=== PATIENT | female | born 1955 | race African-American/Black ===

== ENCOUNTER → 2019-03-11 | Day surgery (SDC) | payer OTHER ==
--- NOTE | 2019-03-11 11:36 | RAD REPORT ---
EXAM DESCRIPTION: Ultrasound-guided vacuum assisted right breast core biopsy CLINICAL HISTORY: Breast mass N63.11 COMPARISON: No comparisons FINDINGS: Informed consent was obtained and time-out was performed. The patient's right breast was prepped and draped in the usual sterile fashion. 1% lidocaine was used for local anesthetic purposes. Utilizing aseptic technique and ultrasound guidance, a 12 gauge vacuum assisted core biopsy device wa s used to obtain 3 core specimens through the mass of interest. A post biopsy clip was then placed. All collected material was sent for cytology. Patient tolerated procedure well. IMPRESSION: Successful ultrasound guided vacuum assisted right breast mass biopsy.
== END ==
LOC: DS 09:26
PROVIDERS: ATTEND Surgery
DX: C50.911 Malignant neoplasm of unspecified site of right female breast (principal)
CPT/HCPCS: 19083; 88305

== ENCOUNTER 2019-03-31 08:19 | Day surgery (SDC) | payer OTHER ==
[2019-03-30 14:55] LABS: Absolute Lymphocytes (CBC) 1.9 K/uL (0.7-4.9); Basophils % 0.7 % (0-1.3); Hematocrit 33.6 % (36.0-45.0); Lymphocytes % 22.5 % (15.3-44.8)
--- NOTE | 2019-03-30 15:07 | RAD REPORT ---
EXAM DESCRIPTION: RAD - Chest Pa And Lat (2 Views) - 03/30/2019 2:55 pm CLINICAL HISTORY: preop, pending Port-A-Cath placement COMPARISON: September 2013 TECHNIQUE: PA and lateral views of the chest were obtained. FINDINGS: The lungs are underinflated. No peripheral mass or consolidation. Lung base markings are n ot clearly different from comparison. Heart size is normal and central vasculature is within normal limits. No pleural effusion or pneumothorax seen. No acute bony finding noted. No aortic abnormal ity. IMPRESSION: No acute cardiopulmonary process.
[2019-03-30 15:11] LABS: Potassium 4.9 mmol/L (3.5-5.1)
--- NOTE | 2019-03-30 17:42 | EKG ---
Test Date: 2019-03-30 Test Time: 14:39:01 Manager Mail: AUDIE MEASUREMENT RESULTS: Intervals: Rate: 77 DC: 176 QRSD: 92 QT: 372 QTc: [address]: P: 40 DC: 176 QRS: 27 T: 21 INTERPRETIVE STATEMENTS: Normal sinus rhythm Normal ECG No previous ECG available for comparison Electronically Signed On 03-30-19 17:41:19 CDT by Maninder Teran
[2019-03-31] MEDS ORDERED: HEPARIN 5000 UNIT/ML 1 ML VIAL ONE (08:35)
[2019-03-31] MEDS ORDERED: LIDOCAINE 1% MPF 30 ML VIAL ONE (08:35)
[2019-03-31] MEDS ORDERED: NS 0.9% VIAL 20 ML ONE (08:35)
[2019-03-31] MEDS ORDERED: NA CHLORIDE 0.9% 1,000 ML ONE (08:43)
[2019-03-31] MEDS ORDERED: CEFAZOLIN/SWI 1gm 1 GM/10 ML SYR ONE (08:43)
[2019-03-31] MEDS ORDERED: MIDAZOLAM HCL 2 MG/2 ML INJ ONE (08:51)
[2019-03-31] MEDS ORDERED: FENTANYL CITR 100 MCG/2 ML ONE (08:51)
[2019-03-31] MEDS ORDERED: LIDOCAINE 2% MPF 5 ML VIAL ONE (08:51)
[2019-03-31] MEDS ORDERED: PROPOFOL 200 MG/20 ML VIAL IV ONE ×3 (08:51→09:28)
[2019-03-31] MEDS ORDERED: SCOPOLAMINE HYDROBROMIDE PATCH TD ONE (09:00)
[2019-03-31] MEDS ORDERED: Mastisol Adhesive Liq ONE (09:55)
--- NOTE | 2019-03-31 10:09 | P.BOP ---
Preoperative diagnosis: breast cancer Postoperative diagnosis: same Primary procedure: 1. Placement of portacath Secondary procedure: 2. interpretation of fluoroscopy Estimated blood loss: <5cc Specimen: none Findings: as above Anesthesia: General Complications: None Transferred to: Recovery Room Condition: Good
--- NOTE | 2019-03-31 10:18 | RAD REPORT ---
EXAM DESCRIPTION: RAD - Fluoroscopy <1 Hour - 03/31/2019 10:05 am CLINICAL HISTORY: Venous catheter insertion. PORT A CATH PLACEMENT COMPARISON: Breast Core BX w/US Guidance dated 03/11/2019 FINDINGS: Fluoroscopy time: 0.8 minutes.
--- NOTE | 2019-03-31 10:39 | RAD REPORT ---
EXAM DESCRIPTION: RAD - Chest Single View - 03/31/2019 10:33 am CLINICAL HISTORY: port a cath insertion Chest pain. COMPARISON: Chest Pa And Lat (2 Views) dated 03/30/2019; CHEST PA AND LAT 2 VIEW dated 10/18/2013 FINDINGS: Portable technique limits examination quality. Left-sided port catheter has its tip in the SVC. No pneumothorax. The heart is normal size. IMPRESSION: No postprocedure pneumothorax.
[2019-03-31] MEDS ORDERED: HYDROMORPHONE HCL 1 MG/ML INJ ONE (10:42)
[2019-03-31 12:04] VITALS: BP 105/68; TEMP 97.5; O2SAT 93
--- NOTE | 2019-03-31 22:47 | OP ---
Date of Procedure: 03/31/2019 Surgeon: Gordon Tabares MD Preoperative Diagnosis: Breast cancer. Postoperative Diagnosis: Breast cancer. Procedures Performed: 1.Placement of Port-A-Cath. 2.Interpretation of fluoroscopy. Estimated Blood Loss: Less than 5 mL. Anesthesia: General plus local. Indications: This is the case of a 63-year-old patient, who comes to us with a breast cancer in need of neoadjuvant treatment, and then eventually surgery. She needs a Port-A-Cath, so the benefits, al ternatives, and risks of Port-A-Cath placement fully explained, which include but are not limited to infection, bleeding, damage to adjacent structures, anesthesia complication, pneumothorax, hemothorax , SC, and even . She also understands this may not relieve any symptoms. She might need more t verdugo one surgical intervention. She understood, signed a consent. She understands the importance of monthly flushing of catheter. [facility]. Then, after that, she was advised to remove that Port-A-Cath as soon as possible. She understood and she has to come back to the office to remove the Port-A-Cath. She signed a consent. Description Of Procedure: The patient was brought to the operating room, placed in supine position. Anesthesia was done without complication. Chest and neck were prepped and draped in a sterile fashi on. A time-out was called. Patient placed in Trendelenburg position. Local anesthesia was applied, followed by insertion of an 18-gauge needle in the left subclavian vein at the first attempt. Guide wire was passed through, this was done under fluoroscopy. Needle was removed. Guidewire was placed in the superior vena cava using fluoroscopy guidance. The introducer was placed through the guidewir e, catheter was placed. Then, introducer was removed. This once again under fluoroscopy. Catheter was tunneled underneath the skin to meet the new incision that we created in the left upper chest wit h a pocket on it. We cut it to proper size, connected to the Port-A-Cath using the die designer's sp ecifications. Then after that, I proceeded and secured Port-A-Cath in place with 3-0 chromic and als o a flush with heparinized solution. Excellent backflow and inflow. Patient tolerated the procedure well. The area was irrigated. Hemostasis obtained, and then the area was closed with 3-0 chromic a nd Steri-Strips on top. Sponge counts and instrument counts were correct. The patient tolerated the procedure well. Patient was sent to Recovery in stable condition. A chest x-ray was ordered stat. ERNESTO/JADE Voice ID: [id number] Report ID: [id number]
--- NOTE | 2019-03-31 22:47 | DS ---
Date of Discharge: 03/31/2019 Diagnosis: Breast cancer. Procedure Performed: Placement of a Port-A-Cath and interpretation of fluoroscopy. Disposition: Home. Activity: As tolerated. No heavy lifting. Followup: Follow up in my office in 1 week. Call for appointment at [phone]. Chest x-ray will be done in recover room. When reviewed, then we will proceed accordingly. The patient will call the Cancer Center today to notify the Port-A-Cath has been placed. ERNESTO/JADE Voice ID: [id number] Report ID: [id number]
--- OUTSIDE RECORDS SUMMARY | 2019-04-11 16:31 | XMS REPORT ---
:1955 Author Organization eClinicalWorks Care Team Providers Name Role Phone Figueroa, Na Provider Role Unavailable Allergies No Known Allergies Problems Problem Type Condition Code Onset Dates Condition Status Problem Other iron deficiency anemia D50.8 Active Problem Deep venous thrombosis I82.409 Active Problem Chronic generalized pain R52 Active Problem Controlled type 2 diabetes mellitus E11.9 Active without complication, unspecified skilled nursing insulin use status Problem Situational insomnia F51.09 Active Problem HTN (hypertension) I10 Active Problem Morbid obesity E66.01 Active Problem Allergic rhinitis J30.9 Active Problem CKD (chronic kidney disease) stage N18.3 Active 3, GFR 30-59 ml/min Problem Family history of diabetes mellitus Z83.3 Active Problem Former smoker Z87.891 Active Problem Restless leg syndrome G25.81 Active Medications No Known Medications Results No Known Results Summary Purpose eClinicalWorks Submission
--- OUTSIDE RECORDS SUMMARY | 2019-04-11 16:31 | XMS REPORT ---
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 Problem Situational insomnia F51.09 Active Problem HTN (hypertension) I10 Active Problem Morbid obesity E66.01 Active Problem Allergic rhinitis J30.9 Active Problem CKD (chronic kidney disease) stage N18.3 Active 3, GFR 30-59 ml/min Problem Family history of diabetes mellitus Z83.3 Active Problem Former smoker Z87.891 Active Problem Restless leg syndrome G25.81 Active Medications Medication Code Code Instructions Start End Status Dosage System Date Date OneTouch Verio [facility] 57139865437 - Active USE TO TEST BLOOD SUGAR 2 TIMES A DAY OneTouch Verio [facility] 65174341546 w/Device Active USE WITH TEST STRIPS TO TEST BLOOD SUGAR FreeStyle Eagle [facility] 31125326572 - [place] daily Sept Active as directed 14 Day Sensor 2018 Pantoprazole ND 74937038661 40 Orally Once Active 1 tablet Sodium a day Clotrimazole ND 17077182996 1 % Externally Active 1 application Twice a day to affected area Hyzaar [facility] 92356458477 50-12.5 MG Active 1 tablet Orally Once a day Xarelto [facility] 31193485377 20 MG Orally Active 1 tablet with Once a day food Montelukast ND 23360581165 10 Orally Once Active 1 tablet in Sodium a day the evening Hydrocortisone [facility] 41280261823 0.2 % Active APPLY 1-2 Valerate GRAMS TOPICALLY TO AFFECTED AREA 1-2 TIMES PER DAY. DO NOT APPLY TO FACE, GROIN, UNDERARMS, UNLESS DIRECTED BY PHYSICIAN. Crestor [facility] 80796621744 5 Orally Once Active 1 tablet a day Flonase [facility] 14978041382 50 MCG/ACT Active 1 spray in Nasally Once a each nostril day Protonix [facility] 47377641894 20 MG Orally Active 1 tablet Once a day Zyrtec Allergy [facility] 52836119652 10 MG Orally Active 1 tablet Once a day Crestor [facility] 33711506016 5 MG Orally Active 1 tablet Once a day Requip [facility] 97777108660 0.5 MG Orally Active 1 tablet 1 to Once a day 3 hours before bedtime Betamethasone [facility] 92784201821 0.05 % Active 1 application Dipropionate Aug Externally to affected Once a day area Tradjenta [facility] 47159889003 5 MG Orally Active 1 tablet Once a day FreeStyle Eagle [facility] 67824207785 - daily Sept Active as directed 14 Day [place] 2018 Alcohol Pads [facility] 13710946721 70 % Active CLEAN THE SKIN BY USING 1 PAD ON THE AFFECTED AREA BEFORE APPLYING ANY TOPICAL CREAM. 2-3 TIMES DAILY Pharmacist Choice [facility] 15248629657 - Active USE TO TEST Lancets BLOOD SUGAR 2 TIMES A DAY Benzonatate [facility] 08083948105 100 MG Orally Jun 04, Active 1 capsule as Three times a 2019 needed day PRN cough Calcipotriene [facility] 83463026395 0.005 % Active APPLY 1-2 GRAMS TOPICALLY TO AFFECTED AREA 2-4 TIMES PER DAY. DO NOT APPLY TO FACE. Simple [facility] 13997087798 - Active USE WITH Diagnostics LANCETS TO Lancing Dev TEST BLOOD SUGAR Pharmacist Choice [facility] 38806574028 - Active USE TO TEST Alcohol BLOOD SUGAR 2 TIMES A DAY Ultram [facility] 57080568115 50 MG Orally Active 1 tablet as every 4 hrs needed Results No Known Results Immunizations Vaccine Administration Date Afluria single dose Apr 07, 2019 Summary Purpose eClinicalWorks Submission
== END 2019-03-31 11:52 | disposition home or self-care (01) ==
LOC: OR 08:19
PROVIDERS: ATTEND Surgery
PROC: 0JH63WZ Insertion of Totally Implantable Vascular Access Device into Chest Subcutaneous Tissue and Fascia, Percutaneous Approach (ICD-10-PCS; principal; 2019-03-31 10:00)
DX: C50.911 Malignant neoplasm of unspecified site of right female breast (principal); E11.9 Type 2 diabetes mellitus without complications; I10 Essential (primary) hypertension; K21.9 Gastro-esophageal reflux disease without esophagitis; E66.01 Morbid (severe) obesity due to excess calories; Z68.43 Body mass index [BMI] 50.0-59.9, adult; Z86.718 Personal history of other venous thrombosis and embolism; Z79.01 Long term (current) use of anticoagulants; Z83.3 Family history of diabetes mellitus
CPT/HCPCS: 36561; 93005; 85025; 80048; 36415; 82947; 71045; 71046; J2704 ×3; J1644 ×2; J2250; J3010; J1170; J0690; J7030; C1788 ×2; 76000

== ENCOUNTER 2019-06-22 07:34 | Day surgery (SDC) | payer OTHER ==
--- OUTSIDE RECORDS SUMMARY | 2019-06-22 07:47 | XMS REPORT ---
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 Problem Situational insomnia F51.09 [...] Status Dosage System Date Date OneTouch Verio [facility] 98771543159 - Active USE TO TEST BLOOD SUGAR 2 TIMES A DAY OneTouch Verio [facility] 71156285246 w/Device Active USE WITH TEST STRIPS TO TEST BLOOD SUGAR FreeStyle Eagle [facility] 86968863937 - [place] daily Sept Active as directed 14 Day Sensor 2018 Pantoprazole ND 72515899545 40 Orally Once Active 1 tablet Sodium a day Clotrimazole ND 49944932899 1 % Externally Active 1 application Twice a day to affected area Hyzaar [facility] 27990822060 50-12.5 MG Active 1 tablet Orally Once a day Xarelto [facility] 51459465567 20 MG Orally Active 1 tablet with Once a day food Montelukast ND 25019059529 10 Orally Once Active 1 tablet in Sodium a day the evening Hydrocortisone ND 12049958368 0.2 % Active APPLY 1-2 Valerate GRAMS TOPICALLY TO AFFECTED AREA 1-2 TIMES PER DAY. DO NOT APPLY TO FACE, GROIN, UNDERARMS, UNLESS DIRECTED BY PHYSICIAN. Crestor [facility] 04257959892 5 Orally Once Active 1 tablet a day Flonase [facility] 91898437284 50 MCG/ACT Active 1 spray in Nasally Once a each nostril day Protonix [facility] 16180919668 20 MG Orally Active 1 tablet Once a day Zyrtec Allergy [facility] 97279333309 10 MG Orally Active 1 tablet Once a day Crestor [facility] 74348651177 5 MG Orally Active 1 tablet Once a day Requip [facility] 95221747065 0.5 MG Orally Active 1 tablet 1 to Once a day 3 hours before bedtime Betamethasone [facility] 69494144058 0.05 % Active 1 application Dipropionate Aug Externally to affected Once a day area Tradjenta [facility] 42418719616 5 MG Orally Active 1 tablet Once a day FreeStyle Eagle [facility] 37635060330 - daily Sept Active as directed 14 Day [place] 2018 Alcohol Pads [facility] 87864747125 70 % Active CLEAN THE SKIN BY USING 1 PAD ON THE AFFECTED AREA BEFORE APPLYING ANY TOPICAL CREAM. 2-3 TIMES DAILY Pharmacist Choice [facility] [id number] - Active USE TO TEST Lancets BLOOD SUGAR 2 TIMES A DAY Benzonatate [facility] 58657673012 100 MG Orally Jun 04, Active 1 capsule as Three times a 2019 needed day PRN cough Calcipotriene [facility] 92342968160 0.005 % Active APPLY 1-2 GRAMS TOPICALLY TO AFFECTED AREA 2-4 TIMES PER DAY. DO NOT APPLY TO FACE. Simple [facility] 79766280981 - Active USE WITH Diagnostics LANCETS TO Lancing Dev TEST BLOOD SUGAR Pharmacist Choice [facility] 29582779101 - Active USE TO TEST Alcohol BLOOD SUGAR 2 TIMES A DAY Ultram [facility] 69981811725 50 MG Orally Active 1 tablet as every 4 hrs needed Results No Known Results Immunizations Vaccine Administration Date Afluria single dose Apr 07, 2019 Summary Purpose eClinicalWorks Submission
--- OUTSIDE RECORDS SUMMARY | 2019-06-22 07:47 | XMS REPORT ---
[...] diabetes mellitus E11.9 Active without complication, unspecified half-way insulin use status Problem Situational insomnia F51.09 [...]
--- OUTSIDE RECORDS SUMMARY | 2019-06-22 07:47 | XMS REPORT ---
[...] diabetes mellitus E11.9 Active without complication, unspecified assisted insulin use status Problem Situational insomnia F51.09 [...]
--- OUTSIDE RECORDS SUMMARY | 2019-06-22 07:47 | XMS REPORT ---
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
--- OUTSIDE RECORDS SUMMARY | 2019-06-22 07:47 | XMS REPORT ---
:1955 Author Organization eClinicalWorks Care Team Providers Name Role Phone Figueroa, Na Provider Role Unavailable Allergies No Known Allergies Problems Problem Type Condition Code Onset Dates Condition Status Problem Other iron deficiency anemia D50.8 Active Problem Deep venous thrombosis I82.409 Active Problem Chronic generalized pain R52 Active Problem HTN (hypertension) I10 Active Problem Morbid obesity E66.01 Active Problem Allergic rhinitis J30.9 Active Problem CKD (chronic kidney disease) stage N18.3 Active 3, GFR 30-59 ml/min Problem Family history of diabetes mellitus Z83.3 Active Problem Former smoker Z87.891 Active Problem Restless leg syndrome G25.81 Active Assessment Dermatitis L30.9 Active Assessment Other iron deficiency anemia D50.8 Active Assessment Controlled type 2 diabetes mellitus E11.9 Active without complication, 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
[2019-06-22 08:34] VITALS: BMI 49.7
[2019-06-22] MEDS ORDERED: NA CHLORIDE 0.9% 500 ML ONE ×2 (08:53→10:52)
[2019-06-22 14:44] VITALS: BP 91/49; TEMP 97.6; O2SAT 99
[2019-06-22 16:33] LABS: Hematocrit 25.9 % (36.0-45.0)
== END 2019-06-22 16:30 | disposition home or self-care (01) ==
LOC: DS 07:34
PROVIDERS: ATTEND Internal Medicine Medical Oncology
DX: D64.81 Anemia due to antineoplastic chemotherapy (principal); C50.411 Malignant neoplasm of upper-outer quadrant of right female breast
CPT/HCPCS: 36415; 86900; 86850; 86901; 85018; 85014; 36430; P9016 ×2; J7040 ×2

== ENCOUNTER 2019-09-08 07:43 | Inpatient (IN) | payer OTHER ==
--- OUTSIDE RECORDS SUMMARY | 2019-09-08 07:46 | XMS REPORT ---
:1955 Author Organization eClinicalWorks Care Team Providers Name Role Phone Figueroa, Na Provider Role Unavailable Allergies No Known Allergies Problems Problem Type Condition Code Onset Dates Condition Statu s Problem Other iron deficiency anemia D50.8 Active Problem Deep venous thrombosis I82.409 Activ e Problem Chronic generalized pain R52 Act sharri Problem Controlled type 2 diabetes mellitus E11.9 Active without complication, unspecified [facility] insulin use status Problem Situational insomnia F51.09 [...]
--- OUTSIDE RECORDS SUMMARY | 2019-09-08 07:46 | XMS REPORT ---
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
--- OUTSIDE RECORDS SUMMARY | 2019-09-08 07:46 | XMS REPORT ---
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 insulin use status Problem Situational insomnia F51.09 [...] Status Dosage System Date Date OneTouch Verio [facility] 31540256717 - Active USE T O TEST BLOOD SUGAR 2 TIMES A DAY OneTouch Verio [facility] 72227389833 w/Device Active USE WITH TEST STRIPS TO TEST BLOOD SUGAR FreeStyle Eagle [facility] 08398919993 - [place] daily Sept Active a s directed 14 Day Sensor 2018 Pantoprazole [facility] 82579244074 40 Orally Once Active 1 tablet Sodium a day Clotrimazole [facility] 19968653496 1 % Externally Active 1 application Twice a day to affected area Hyzaar [facility] 83367271997 50-12.5 MG Active 1 tablet Orally Once a day Xarelto [facility] 30210395194 20 MG Orally Active 1 table t with Once a day food Montelukast ND 15811991748 10 Orally Once Active 1 tablet in Sodium a day the evening Hydrocortisone ND 49119953065 0.2 % Active APPLY 1-2 Valerate GRAMS TOPICALLY TO AFFECTED AREA 1-2 TIMES PER DAY. DO NOT APPLY TO FACE, GROIN, UNDERARMS, UNLESS DIRECTED BY PHYSICIAN. Crestor [facility] 52662874239 5 Orally Once Active 1 tabl et a day Flonase [facility] 61548679347 50 MCG/ACT Active 1 spray i n Nasally Once a each nost ril day Protonix ND 96459810612 20 MG Orally Active 1 tabl et Once a day Zyrtec Allergy ND 82917841475 10 MG Orally Active 1 tablet Once a day Crestor [facility] 88068311373 5 MG Orally Active 1 tablet Once a day Requip ND 51425517805 0.5 MG Orally Active 1 tabl et 1 to Once a day 3 hours before bedtime Betamethasone [facility] 39997421593 0.05 % Active 1 appl ication Dipropionate Aug Externally to a ffected Once a day area Tradjenta [facility] 99566264948 5 MG Orally Active 1 tabl et Once a day FreeStyle Eagle [facility] 69261310368 - daily Sept Active as directed 14 Day Moodus 2018 Alcohol Pads [facility] 50995151774 70 % Active CLEAN T HE SKIN BY USING 1 PAD ON THE AFFECTED AREA BEFORE APPLYING ANY TOPICAL CREAM. 2-3 TIMES DAILY Pharmacist Choice [facility] 18936432632 - Active US E TO TEST Lancets BLOOD SUGAR 2 TIMES A DAY Benzonatate ND 56602342480 100 MG Orally Jun 04, Active 1 capsule as Three times a 2019 needed day PRN cough Calcipotriene [facility] 31997205260 0.005 % Active APPLY 1-2 GRAMS TOPICALLY TO AFFECTED AREA 2-4 TIMES PER DAY. DO NOT APPLY TO FACE. Simple [facility] 87946487334 - Active USE WITH Diagnostics LANCETS TO Lancing Dev TEST BLOOD SUGAR Pharmacist Choice [facility] 67000622259 - Active US E TO TEST Alcohol BLOOD SUGAR 2 TIMES A DAY Ultram [facility] 90970999733 50 MG Orally Active 1 table t as every 4 hrs needed Results No Known Results Immunizations Vaccine Administration Date Afluria single dose Apr 07, 2019 Summary Purpose eClinicalWorks Submission
--- OUTSIDE RECORDS SUMMARY | 2019-09-08 07:46 | XMS REPORT ---
[...] diabetes mellitus E11.9 Active without complication, unspecified [facility] insulin use status Problem Situational insomnia F51.09 [...]
--- OUTSIDE RECORDS SUMMARY | 2019-09-08 07:47 | XMS REPORT ---
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
--- OUTSIDE RECORDS SUMMARY | 2019-09-08 07:47 | XMS REPORT ---
:1955 Author Organization eClinicalWorks Care Team Providers Name Role Phone Figueroa, Na Provider Role Unavailable Allergies No Known Allergies Problems Problem Type Condition Code Onset Dates Condition Statu s Problem CKD (chronic kidney disease) stage N18.3 Active 3, GFR 30-59 ml/min Problem Former smoker Z87.891 Active Problem Restless leg syndrome G25.81 Active Problem Chronic generalized pain R52 Act sharri Problem Deep venous thrombosis I82.409 Activ e Problem Family history of diabetes mellitus Z83.3 Active Problem Other iron deficiency anemia D50.8 Active Problem Situational insomnia F51.09 Active Problem 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
--- OUTSIDE RECORDS SUMMARY | 2019-09-08 07:47 | XMS REPORT ---
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
--- OUTSIDE RECORDS SUMMARY | 2019-09-08 07:47 | XMS REPORT ---
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 status Problem Situational insomnia F51.09 Active Problem HTN (hypertension) I10 Active Problem Morbid obesity E66.01 Active Problem Allergic rhinitis J30.9 Active Problem CKD (chronic kidney disease) stage N18.3 Active 3, GFR 30-59 ml/min Problem Family history of diabetes mellitus Z83.3 Active Problem Former smoker Z87.891 Active Problem Restless leg syndrome G25.81 Active Medications Medication Code System Code Instructions Start Date End Date Status Dosage Tradjenta [facility] 96572228318 5 MG Orally Once Active 1 tablet a day Results No Known Results Summary Purpose eClinicalWorks Submission
--- OUTSIDE RECORDS SUMMARY | 2019-09-08 07:47 | XMS REPORT | Encounter Summary ---
:1955 Author Care Team Providers Name Role Phone Renee Figueroa DO Primary Care Provider [phone] [facility] [phone] Reason for Visit Diabetes mellitus; Chronic kidney diseas e stage 3; chronic care management; Telemedicine Visit Instructions 1. Diabetes mellitus Tradjenta 5 mg tablet gabapentin 300 mg capsule neuropathic pain: care ins tructions 2. Chronic kidney disease stage 3 3. Body mass index 40+ - severel y obese body mass index: care inst ructions learning about healthy marilyn ght 4. Malignant neoplasm of female breast 5. Essential hypertension Discussion Note: None recorded. Plan of Care Reminders Provider Appointments None recorded. Lab None recorded. Referral None recorded. Procedures None recorded. Surgeries None recorded. Imaging None recorded. Medications Name Start Date Claritin 10 mg tablet Take 1 tablet every day by oral route in the morning. gabapentin 300 mg capsule Take 1 capsule 3 times a day by oral route with meals . ondansetron 4 mg disintegrating tablet Take 2 tablets every 12 hours by oral route. pantoprazole 40 mg tablet,delayed release Take 1 tablet every day by oral route in the morning. Tradjenta 5 mg tablet Take 1 tablet every day by oral route with meals. tramadol 50 mg tablet Take 1 tablet every 6 hours by oral route. Xarelto 10 mg tablet Take 1 tablet every day by oral route. zolpidem 5 mg tablet Take 1 tablet every day by oral route at bedtime. Medications Administered None recorded. Vitals Height Weight BMI Blood Pressure 5 ft 6 in 306 lbs 49.4 kg/m2 117/80 mm[Hg] Results Lab Results None recorded. Allergies Code Code System Name Reaction Severity Status Onset NKDA Problems Name Status Onset Date Source Diabetes Mellitus Active 12/14/2018 Deep Venous Thrombosis Active 12/14/2018 Gastroesophageal Reflux Disease Active 12/14/2018 Chronic Kidney Disease Stage 3 Active 12/14/2018 Chronic Back Pain Active 12/14/2018 Body Mass Index 40+ - Severely Obese Active 12/14/2018 Diabetic Polyneuropathy Active 08/27/2019 Inflammatory Disorder Active 08/27/2019 Malignant Neoplasm of Female Breast Active 09/01/2019 Essential Hypertension Active 09/01/2019 Insertion of Implantable Venous Access Port Active 06/2019 Procedures Date Name Performed by Hysterectomy (Total) Information not carrington ilable Vaccine List Vaccine Type influenza, injectable, quadrivalent 03/02/2019 Social History Tobacco Smoking Status Former Smoker Past Encounters 08/30/2019 Diabetes Mellitus; Chronic Kidney Diseas e Stage 3; Body Mass Index 40+ - Severely Obese; Malignant Neoplasm of Female Breast; Essential Hypertension Leeann Ramos, FRAMING CONSULTANT: [address] [facility] , [address], [place] [address], Ph. History of Present Illness Diabetes Reported By: Patient HPI: Duration: chronic. Control: usually well controlled. Compliance: compliant with medications. Self Care: seeing eye doctor regularly, checking feet regularly. Ass ociated Symptoms: numbness of feet Mini Cog Reported By: Patient Functional Ability: Personal/Social/ Draw a cloc k and write in the numbers in the correct place, and set the t kyaw to 10 minutes after 11 o'clock was completed correctly? Yes , 3 word recall: Your nurse or doctor will ask you to remember 3 w ords. In 5 minutes, they will ask you to repeat them. Riyamagdi t recalled 3 words Chronic Disease Management: HTN, DM, Lipid Disorder CDM Reported By: Patient HPI: Type: hypertension essential . Status: Diabetes - Controlled. Severity with CKD, with Nephropathy; Polyneuropathy exacerbated by chemo. Associated Symptoms: feet pa in, tingling, numbness of feet. Modifying Factors improved with medica tions. Compliance: COMPLIANT with theraputic plan CKD CDM Reported By: Patient HPI: Type/Etiology: HTN, diabetes . Duration or Onset: chronic. Status: controlled. Severity: stage 3. Associated Symptoms: no leg swelling, no weight gain, no changes in u rination, no chest pain at rest, no shortness of breath, no ligh t headedness Opioid Use Assessment Reported By: Patient Opioid Use Assessment:: Current Use of Opioids : Tra madol (Ultram). Has the patient tried other pain management modalities: yes; Tried massaging Note: I confirm that I received verbal consent from the patient for the virtual visit. Review of Systems Comprehensive General Adult ROS Reported By: Patient Constitutional: Constitutional: no fever, no night sweats, no significant weight gain, no significant weight loss, no exercise intolerance Eyes: Eyes: no dry eyes, no vision change, no irritation ENMT: Ears: no difficulty hearing, no ear pain. Nose: no frequent nosebleeds, no nose problems , no sinus problems. Mouth/Throat: no sore throat, no bleeding gums, no snoring, no dry mouth, no mouth ulcers, no oral abnorm alities, no teeth problems Cardiovascular: Cardiovascular: no chest catherine n, no arm pain on exertion, no shortness of breath when wal shahid, no shortness of breath when lying down, no palpitations, no known heart murmur, no lightheadedness Respiratory: Respiratory: no cough, no wh eezing, no shortness of breath, no coughing up blood, no sleep apnea Gastrointestinal: Gastrointestinal: no abdomin al pain, no nausea, no vomiting, no constipation, normal appe tite, no diarrhea, not vomiting blood, no dyspepsia, no GERD Genitourinary: Genitourinary: no incontinen ce, no difficulty urinating, no hematuria, no increased freq uency Musculoskeletal: Musculoskeletal: no muscle a ches, no muscle weakness, no arthralgias/joint pain, no b ack pain, no swelling in the extremities Integumentary: Skin: no abnormal mole, no j aundice, no rashes, no laceration Neurologic: Neurologic: no loss of consc iousness, no weakness, no seizures, no dizziness, no m igraines, no headaches, no tremor, numbness, restless legs; Num bness an tingling to both hands and feet Psychiatric: Psych: no depression, no sle ep disturbances, feeling safe in a relationship, no alcohol abu se, no anxiety, no hallucinations, no suicidal thoughts Endocrine: Endocrine: no fatigue Hematologic/Lymphatic: Hematologic/Lymphatic no swo llen glands, no bruising, no excessive bleeding Allergic/Immunologic: Allergy/Immunologic: no runn y nose, no sinus pressure, no itching, no hives, no freque nt sneezing Physical Exam None recorded.
--- OUTSIDE RECORDS SUMMARY | 2019-09-08 07:48 | XMS REPORT ---
:1955 Author Organization eClinicalWorks Care Team Providers Name Role Phone Figueroa, Na Provider Role Unavailable Allergies, Adverse Reactions, Alerts Substance Reaction Event Type N.K.D.A. 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 Problem HTN (hypertension) I10 Active Problem Morbid obesity E66.01 Active Problem Controlled type 2 diabetes E11.9 A ctive mellitus without complication, unspecified 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 insulin 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 status Problem Allergic rhinitis J30.9 Active Assessment Elevated serum globulin level R77.1 Active Assessment Other iron deficiency anemia D50.8 Active Assessment Deep venous thrombosis I82.409 Activ e Assessment CKD (chronic kidney disease) stage N18.3 Active 3, GFR 30-59 ml/min Problem Chronic generalized pain R52 Act sharri Assessment HTN (hypertension) I10 Active Problem Deep venous thrombosis I82.409 Activ e Assessment Adverse effect of antineoplastic T45.1X5A Active and immunosuppressive drugs, initial encounter Assessment Controlled type 2 diabetes E11.9 A ctive mellitus without complication, unspecified 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 insulin use status Problem Family history of diabetes Z83.3 A ctive mellitus Medications Medication Code Code Instructions Start End Status Dosage System Date Date Xarelto [facility] 63851668767 20 MG Orally Active 1 table t with Once a day food Tradjenta ND 48958188997 5 MG Orally Active 1 tabl et Once a day Zyrtec Allergy ND 01096081293 10 MG Orally Active 1 tablet Once a day OneTouch Verio [facility] 46229566675 w/Device Active USE WITH TEST STRIPS TO TEST BLOOD SUGAR Simple [facility] 90326239365 - Active USE WITH Diagnostics LANCETS TO Lancing Dev TEST BLOOD SUGAR Flonase ND 33853399476 50 MCG/ACT Active 1 spray i n Nasally Once a each nost ril day Protonix ND 02566098842 20 MG Orally Active 1 tabl et Once a day Hyzaar ND 75081910818 50-12.5 MG Active 1 tablet Orally Once a day FreeStyle [place] ND 54611581654 - daily Sept Active as directed 14 Day [place] 2018 Crestor [facility] 47431851890 5 MG Orally Active 1 tablet Once a day Benzonatate ND 74117606535 100 MG Orally Jun 04, Active 1 capsule as Three times a 2018 needed day PRN cough Tradjenta ND 73801128350 5 MG Active TAKE 1 TAB LET BY MOUTH EVERY DAY Ultram ND 29382229148 50 MG Orally Active 1 table t as every 4 hrs needed Clotrimazole ND 14540902488 1 % Externally Active 1 application Twice a day to affected area FreeStyle Eagle [facility] 16809300472 - SC daily Sept Active a s directed 14 Day Sensor 2018 Hydrocortisone ND 91916478561 0.2 % Active APPLY 1-2 Valerate GRAMS TOPICALLY TO AFFECTED AREA 1-2 TIMES PER DAY. DO NOT APPLY TO FACE, GROIN, UNDERARMS, UNLESS DIRECTED BY PHYSICIAN. Requip ND 98594349149 0.5 MG Orally Active 1 tabl et 1 to Once a day 3 hours before bedtime Calcipotriene [facility] 91513696657 0.005 % Active APPLY 1-2 GRAMS TOPICALLY TO AFFECTED AREA 2-4 TIMES PER DAY. DO NOT APPLY TO FACE. Crestor [facility] 02500771422 5 Orally Once Active 1 tabl et a day Pharmacist [facility] 92818957713 - Active USE TO TE ST Choice Alcohol BLOOD SUG AR 2 TIMES A DAY Ferrous Sulfate ND 15740840230 325 (65 Fe) MG Inact sharri 1 tablet Orally twice a day Alcohol Pads [facility] 78639568344 70 % Active CLEAN T HE SKIN BY USING 1 PAD ON THE AFFECTED AREA BEFORE APPLYING ANY TOPICAL CREAM. 2-3 TIMES DAILY Betamethasone [facility] 00704647995 0.05 % Active 1 appl ication Dipropionate Aug Externally to a ffected Once a day area Pharmacist [facility] 23021180322 - Active USE TO TE ST Choice Lancets BLOOD SUG AR 2 TIMES A DAY Montelukast [facility] 98964790021 10 Orally Once Active 1 tablet in Sodium a day the evening Pantoprazole [facility] 28794146693 40 Orally Once Active 1 tablet Sodium a day OneTouch Verio [facility] 03937666198 - twice a day Active USE TO TEST BLOOD SUGAR 2 TIMES A DAY Results Name Result Date Reference Range Unit Abnormali ty Flag Hemoglobin A1c ----Hemoglobin A1c 5.5 62904823 4.8-5.6 % Comp. Metabolic Panel (14) (CMP) ----Globulin, Total 2.6 20190727 1.5-4.5 g/dL ----eGFR If Africn Am 58 64304305 >59 mL/min/1.73 L ----Albumin 4.0 99888354 3.8-4.8 g/dL ----eGFR If NonAfricn Am 51 44957767 >59 mL/min/1.73 L ----Sodium 145 20190727 134-144 mmol/L H ----Protein, Total 6.6 20190727 6.0-8.5 g/dL ----BUN/Creatinine Ratio 21 20190727 12-28 ----Calcium 9.0 20190727 8.7-10.3 mg/dL ----AST (SGOT) 22 20190727 0-40 IU/L ----Glucose 118 20190727 65-99 mg/dL H ----Alkaline Phosphatase 105 20190727 39-117 IU/L ----Bilirubin, Total 0.4 20190727 0.0-1.2 mg/dL ----Creatinine 1.16 20190727 0.57-1.00 mg/dL H ----A/G Ratio 1.5 20190727 1.2-2.2 ----BUN 24 20190727 8-27 mg/dL ----Carbon Dioxide, 22 20190727 20-29 mmol/L Total ----ALT (SGPT) 19 20190727 0-32 IU/L ----Potassium 3.6 35969533 3.5-5.2 mmol/L ----Chloride 108 98773509 96-106 mmol/L H Lipid Panel w/ Chol/HDL Ratio ----T. Chol/HDL Ratio 8.5 20190727 0.0-4.4 ratio H ----LDL Cholesterol Calc 155 20190727 0-99 mg/dL H ----Cholesterol, Total 222 20190727 100-199 mg/dL H ----Triglycerides 206 20190727 0-149 mg/dL H ----HDL Cholesterol 26 20190727 >39 mg/dL L ----VLDL Cholesterol [place] 41 54691799 5-40 mg/dL H Microalbumin/Creat Ratio, Random Ur ----Albumin, Urine 256.7 61020424 Not Estab. ug/mL ----Alb/Creat Ratio 197 20190727 0-29 mg/g creat H ----Creatinine, Urine 130.0 [id number] Not Estab. mg/dL CBC With Differential/Platelet ----RDW 19.7 77509950 11.7-15.4 % H ----MCHC 31.0 19051264 31.5-35.7 g/dL L ----MCH 28.0 82990650 26.6-33.0 pg ----MCV 90 75163381 79-97 fL ----Hematocrit 27.4 67414190 34.0-46.6 % L ----Hemoglobin 8.5 91014665 11.1-15.9 g/dL L ----Immature 1 [id number] Not Estab. % Granulocytes ----RBC 3.04 74557667 3.77-5.28 x10E6/uL L ----WBC 5.1 33754172 3.4-10.8 x10E3/uL ----Immature Grans (Abs) 0.1 83706273 0.0-0.1 x10E3/uL ----Eos (Absolute) 0.0 02192421 0.0-0.4 x10E3/uL ----Basos 0 23530917 Not Estab. % ----Baso (Absolute) 0.0 [id number] 0.0-0.2 x10E3/uL ----Neutrophils 4.1 53442583 1.4-7.0 x10E3/uL (Absolute) ----Lymphs (Absolute) 0.5 42336753 0.7-3.1 x10E3/uL L ----Monocytes(Absolute) 0.4 20190727 0.1-0.9 x10E3/uL ----Neutrophils 81 20190727 Not Estab. % ----Lymphs 10 20190727 Not Estab. % ----Monocytes 8 20190727 Not Estab. % ----Eos 0 [id number] Not Estab. % ----Platelets 324 20190727 150-450 x10E3/uL Summary Purpose eClinicalWorks Submission
[2019-09-08] MEDS ORDERED: SCOPOLAMINE HYDROBROMIDE PATCH TD ONE (08:06)
[2019-09-08] MEDS ORDERED: NA CHLORIDE 0.9% 1,000 ML ONE (08:06)
[2019-09-08] MEDS ORDERED: CEFAZOLIN/SWI 1gm 1 GM/10 ML SYR ONE (08:06)
[2019-09-08 08:15] LABS: Absolute Lymphocytes (CBC) 0.7 K/uL (0.7-4.9); Basophils % 0.3 % (0-1.3); Hematocrit 28.4 % (36.0-45.0); Lymphocytes % 9.8 % (15.3-44.8); MPV 7.5 fL (7.6-11.3); RBC Red Blood Cell Count 3.23 M/uL (3.86-4.86)
[2019-09-08] MEDS ORDERED: ROCURONIUM 50 MG/5 ML VIAL IV ONE (08:15)
[2019-09-08] MEDS ORDERED: LIDOCAINE 1% MPF 5 ML VIAL ONE (08:15)
[2019-09-08] MEDS ORDERED: FENTANYL CITR 100 MCG/2 ML ONE (08:15)
[2019-09-08] MEDS ORDERED: propofoL 200 MG/20 ML VIAL IV ONE (08:15)
[2019-09-08] MEDS ORDERED: MIDAZOLAM HCL 2 MG/2 ML INJ ONE (08:15)
[2019-09-08] MEDS ORDERED: KETOROLAC 30 MG/ML INJ ONE ×2 (08:16→11:51)
[2019-09-08] MEDS ORDERED: dexAMETHasone 10 MG/ML VIAL ONE (08:16)
[2019-09-08] MEDS ORDERED: ONDANSETRON 4 MG/2 ML VIAL ONE ×2 (08:16→11:52)
--- NOTE | 2019-09-08 08:36 | RAD REPORT ---
EXAM DESCRIPTION: Grace Mackey (2 Views)09/08/2019 8:26 am CLINICAL HISTORY: Breast cancer preoperative exam for mastectomy COMPARISON: 2019 FINDINGS: The lungs appear clear of acute infiltrate. The heart is borderline enlarged. A central v enous catheters is tip in the superior vena cava. It is pointing laterally IMPRESSION: No acute abnormalities displayed
[2019-09-08 09:06] LABS: Anisocytosis 1+; Blood Morphology Comment NOTED (NOT SEEN); Platelet Estimate ADEQ
[2019-09-08] MEDS ORDERED: FENTANYL CITR 250 MCG/5 ML ONE (10:07)
[2019-09-08] MEDS: NA CHLORIDE 0.9% 1,000 ML ONE ×2 (11:11→11:30)
[2019-09-08] MEDS ORDERED: GLYCOPYRROLATE 0.2 MG/ML SYR ONE (11:51)
[2019-09-08] MEDS ORDERED: NEOSTIGMINE 1 MG/ML -5 ML ONE (11:52)
--- NOTE | 2019-09-08 12:17 | P.BOP ---
Preoperative diagnosis: large, multifocal, infiltrating ductal carcinoma, s/p NeoadjuvantChemothera Postoperative diagnosis: morbid obesity, hx DVT, hx of Pulmonary emboli, HTN, Diabetes Primary procedure: Right Modified radical mastectomy Supervisor Mending: ROSA MINOR (CHARGER OPERATOR HELPER) Estimated blood loss: <100cc Specimen: Large breast with axillary lymphnode Anesthesia: General Complications: None Drain(s): NA drain (x#) Transferred to: Recovery Room Condition: Good
[2019-09-08] MEDS ORDERED: SODIUM CHLORIDE 0.9% 10ML INJ IV PRN (12:28)
[2019-09-08] MEDS ORDERED: ONDANSETRON 4 MG/2 ML VIAL IV PRN (12:28)
[2019-09-08] MEDS: HYDROMORPHONE HCL 2 MG/ML inj ONE ×4 (13:05→13:40)
[2019-09-08] MEDS: NA CHLORIDE 0.9% 1,000 ML IV SCH ×2 (14:23→23:11)
[2019-09-08] MEDS: HYDROMORPHONE HCL 1 MG/ML INJ IV PRN ×3 (14:36→21:22)
[2019-09-08 15:13] VITALS: BMI 47.9
--- NOTE | 2019-09-08 15:51 | EKG ---
Test Date: 2019-09-08 Test Time: 08:05:14 Speech Language Pathology Assistant: KENNETH MEASUREMENT RESULTS: Intervals: Rate: 97 SD: 122 QRSD: 76 QT: 356 QTc: 452 [place]app[place]: P: 31 SD: 122 QRS: 35 T: 25 INTERPRETIVE STATEMENTS: Normal sinus rhythm Normal ECG Compared to ECG 03/30/2019 14:39:01 No significant changes Electronically Signed On 09-08-19 15:49:44 CDT by Maninder Teran
--- NOTE | 2019-09-08 17:11 | P.CNS ---
Date of Consult: 09/08/19 Reason for Consult: Medical management Requesting Physician: Gordon Tabares Chief Complaint: Status post radical mastectomy History of Present Illness: 63-year-old with a history of breast cancer, status post neoadjuvant chemotherapy, history of pulmonary embolism and DVT on xarelto, history of diabetes mellitus which is well controlled, underwent right radical mastectomy for large multifocal infiltrating ductal carcinoma. Patient is admitted for postop monitoring. The hospitalist service is consulted to assist with management of her medical issues. Patient denies any complain. She states her pain is well controlled. She reports well controlled blood sugar, she reports her hemoglobin A1c is less than 6. She stopped taking blood pressure medications last year due to hypotension. States her blood pressure has been good since then. Allergies No Known Allergies Allergy (Verified 09/08/19 08:03) Home Medications: Linagliptin [Tradjenta] 5 mg PO DAILY 02/19/17 Pantoprazole [Protonix Tab] 40 mg PO DAILY 02/19/17 Ropinirole HCl [Requip] 0.5 mg PO BEDTIME PRN 02/19/17 Ascorbic Acid [Vitamin C] 1,000 mg PO DAILY 03/30/19 Iron Fum & Ps Cmp/Vit C & B [Integra Capsule] 1 each PO DAILY 03/30/19 Rivaroxaban [Xarelto] 10 mg PO DAILY 03/30/19 Ondansetron HCl [Zofran] 4 mg SQ Q6HP PRN 06/22/19 - Past Medical/Surgical History Diabetic: Yes -: DM -: DVT -: Breast Cancer 2019 -: Adrenal gland removal -: Hysterectomy -: Hernia repair - Family History Mother Medical History: Hypertension, Diabetes - Social History Alcohol use: No CD- Drugs: No Caffeine use: No Place of Residence: Home Review of Systems Other: Except as documented, all other systems reviewed and negative. Physical Examination Temp Pulse Resp BP Pulse Ox 97.3 F 103 H 20 107/67 95 09/08/19 14:15 09/08/19 14:15 09/08/19 15:06 09/08/19 14:15 09/08/19 14:15 General: Alert, In no apparent distress, Oriented x3 HEENT: Mucous membr. moist/pink Neck: Supple Respiratory: Clear to auscultation bilaterally, Normal air movement Cardiovascular: No edema, Regular rate/rhythm, Normal S1 S2 Capillary refill: <2 Seconds Gastrointestinal: Normal bowel sounds, Soft and benign, Non-distended, No tenderness Musculoskeletal: No swelling, No erythema Integumentary: No rashes Neurological: Normal strength at 5/5 x4 extr, Other (Nonfocal) Laboratory Data (last 24 hrs) 09/08/19 07:59: Sodium 143, Potassium 4.0, BUN 20 H, Creatinine 1.25, Glucose 113 H 09/08/19 07:59: WBC 6.8, Hgb 9.4 L, Hct 28.4 L, Plt Count 258 - Problems (1) Breast cancer Current Visit: Yes Status: Chronic (2) DM type 2 (diabetes mellitus, type 2) Current Visit: Yes Status: Chronic (3) History of pulmonary embolus (PE) Current Visit: Yes Status: Chronic (4) History of DVT (deep vein thrombosis) Current Visit: Yes Status: Chronic (5) Chronic anemia Current Visit: Yes Status: Acute Conclusions/Impression: Her medical problems appear to be stable. Continue Xarelto for thromboembolic disease. Most recent hemoglobin A1c in July 2018 was 6.6. Will continue home dose Tra jenta. Will place her on insulin sliding scale. Continue home dose Ropinirol. Follow hemoglobin. Continue multivitamins.
[2019-09-08] MEDS ORDERED: HOME MED 1 EA UNK (Ropinirole Hcl [Requip] 0.5 MG) PO PRN (17:17)
[2019-09-08] MEDS: CEFOXITIN/SWI 1gm 1 GM/10 ML SYR IV SCH (17:25)
[2019-09-08] MEDS ORDERED: ROPINIROLE HCL 0.25 MG TAB PO PRN (17:28)
[2019-09-08] MEDS ORDERED: CEFOXITIN 1 GM in NA CHLORIDE 0.9% 100 ML IVPB SCH (18:00)
[2019-09-08 22:09] LABS: Urine Appearance CLEAR; Urine Bilirubin NEGATIVE (NEG); Urine Blood NEGATIVE (NEG); Urine Color YELLOW; Urine Glucose NEGATIVE (NEG); Urine Protein TRACE (NEG); Urine Urobilinogen 0.2 mg/dL (0.2-1.0)
[2019-09-08 22:14] LABS: Urine Microscopic Reflex ORDER UMIC
[2019-09-08 22:21] LABS: Urine Bacteria <20 /HPF (<20); Urine Culture Reflex Order NOT NEEDED; Urine Mucus 1+ /HPF (NONE SEEN); Urine RBC <5 /HPF (NONE SEEN)
[2019-09-09] MEDS: CEFOXITIN/SWI 1gm 1 GM/10 ML SYR IV SCH ×2 (00:22→05:01)
--- NOTE | 2019-09-09 00:54 | OP ---
Date of Procedure: 09/08/2019 Surgeon: Gordon Tabares MD Performance Improvement Analyst: SHANNON Toro. Preoperative Diagnoses: Large multicentric infiltrating ductal carcinoma in the right breast status post neoadjuvant chemotherapy; morbid obesity; history of deep vein thrombosis; history of pulmonary emboli, on anticoagulation; hypertension; diabetes. Postoperative Diagnoses: Large multicentric infiltrating ductal carcinoma in the right breast status post neoadjuvant chemotherapy; morbid obesity; history of deep vein thrombosis; history of pulmonary emboli, on anticoagulation; hypertension; diabetes. Procedure: Right modified radical mastectomy. Estimated Blood Loss: 100 mL. Specimen: Large breast with axillary lymph node dissection. Anesthesia: General plus local. Drains: NA #10 x3. Indications: This is the case of a female who comes to us with several months ago with a multifocal infiltrating ductal carcinoma, 2 different tumors, large. Patient went for chemotherapy, received ne oadjuvant treatment finished several weeks ago. Now, she is due for surgery. She does not want the way she understand the timing of this situation. We discussed with her the risk of murillo virus infe ction and also complications from it, however, the same time she understand. She finished the neoadj uvant treatment and she wants to have surgery done now several weeks after. We understand her situat ion. She was fully explained the benefits, alternatives, and risks of modified radical mastectomy wh ich include, but not limited to infection, bleeding, damage to adjacent structures, anesthesia compli cation, failure of the flaps, DVT, MO, PE, flap failure, seroma, hematoma, lymphedema, [place], or even de ath. She also understands this may not relieve symptoms. She might need more than one surgical inte rvention. I discussed the case with the [facility]. Once again, they instructed me to proceed wi th a modified radical mastectomy and patient did agree with them to, so we proceeded with it. Description Of Procedure: So patient was brought to the operating room, placed in supine position. Anesthesia was given without complication. Patient has a very large breast. The skin was made in a way that encompassed nipple areolar complex and the previous biopsy scars. The incision was made abo ut oblique transverse direction including the nipple areolar complex once again. The flaps were rais ed superiorly up to the clavicle, medial to the sternum and inferiorly to the anterior rectus sheath and laterally to the latissimus dorsi border. Once again, to significant amount of time since javier tierney has a very large breast. Once we had a flap elevated and looks viable, we proceeded then to remove the breast and the fascia from the muscle from a medial to lateral side. After that, the clavipecto ral fascia was carefully opened near the pectoralis major and minor. The tayo tissue was freed from the rest of the fatty tissue. We did that with the help of the hemoclips. Axillary vein and artery were left intact. The long thoracic and thoracodorsal nerve were left intact. Patient was not para lyzed and the specimen was sent to the pathologist. We proceed to do profuse irrigation of the area. Hemostasis was obtained. Due to the large size of the breast, 2 drains are not enough. We are goi ng to have to use 3 drains, so we put 1 over the upper flat, lower flat, and also over the lateral si de. This was coming through different insertion sites and secured in place with a 3-0 nylon. The sol bcutaneous tissue was approximated with 0 chromic and 3-0 chromic and then the skin was approximated with amor after sponge count and instrument counts were correct after irrigation and after hemosta sis was obtained. NA was connected to bulb suction. The patient tolerated the procedure well. Spon ge count and instrument counts were correct. The area was wrapped and patient was sent to recovery i n stable condition. At the end of the case, the arm shows good peripheral pulses with no swelling. The patient will remain in the hospital. She has many comorbidities and she wants to stay in the [facility] overnight. I believe I agree with her since she has diabetes, she has DVT, she has TE. She is morbidly obese. We are going to keep and she has a low tolerance to pain. We going to keep the catherine n under control. We are going to set her as soon as we can control her pain with p.o. medications and she is tolerating diet. HM/MODL Voice ID: [id number] Report ID: [id number]
[2019-09-09] MEDS: HYDROMORPHONE HCL 1 MG/ML INJ IV PRN ×3 (05:11→12:21)
[2019-09-09 06:15] LABS: Potassium 4.8 mmol/L (3.5-5.1)
[2019-09-09 06:52] LABS: Absolute Lymphocytes (CBC) 0.7 K/uL (0.7-4.9); Basophils % 0.4 % (0-1.3); Hematocrit 23.4 % (36.0-45.0); Lymphocytes % 5.7 % (15.3-44.8); MPV 7.9 fL (7.6-11.3); RBC Red Blood Cell Count 2.69 M/uL (3.86-4.86)
[2019-09-09] MEDS: PANTOPRAZOLE 40MG TABLET PO SCH (08:00)
[2019-09-09] MEDS: RIVAROXABAN 10 MG TABLET PO SCH (08:00)
[2019-09-09] MEDS: ASCORBIC ACID 500 MG TABLET PO SCH (08:00)
[2019-09-09] MEDS: NA CHLORIDE 0.9% 1,000 ML IV SCH ×2 (08:13→19:00)
[2019-09-09] MEDS ORDERED: VIT C PO SCH (09:00)
[2019-09-09] MEDS ORDERED: [UNRECOGNIZED DRUG - OTHER] PO SCH (09:00)
[2019-09-09] MEDS ORDERED: HOME MED 1 EA UNK (Linagliptin [Tradjenta] 5 MG) PO SCH (09:00)
[2019-09-09] MEDS ORDERED: ENOXAPARIN 40 MG/0.4 ML SQ SCH (09:00)
[2019-09-09] MEDS ORDERED: PANTOPRAZOLE 40 MG INJ IVP SCH (09:00)
[2019-09-09] MEDS ORDERED: HOME MED 1 EA UNK (Ascorbic Acid [Vitamin C] 1,000 MG) PO SCH (09:00)
[2019-09-09] MEDS ORDERED: IRON FUM PO SCH (09:00)
[2019-09-09] MEDS ORDERED: PS CMP PO SCH (09:00)
[2019-09-09] MEDS: LINAGLIPTIN 5 MG PO SCH (09:29)
[2019-09-09] MEDS ORDERED: NA CHLORIDE 0.9% 250 ML ONE (13:23)
--- NOTE | 2019-09-09 14:20 | PN ---
Date of Progress Note: 09/09/2019 Diagnosis: History of breast cancer status post right modified radical mastectomy, diabetes morbid o besity, hypertension. Subjective: Patient is doing well. No complaint. No short of breath. No chest pain. Objective: Chest: Clear. Right side surgical site is intact. NA drains serosanguineous. Abdomen: Soft and depressible. Extremities: Good capillary refill. Laboratory Data: Blood work shows a hemoglobin of 7.3, WBC count of 12.8, chloride is 113, glucose 1 15. Plan: Will be 1 unit of blood transfusion, type and cross. Patient is stable at this moment. We ne ed her oxygenation the best we can at this moment since we have a very large flap that we have to pro tect too. She understands the risks of blood transfusion. She understood that before too and she pr eferred to have the blood transfusion. We are going to start in the next 24 hours. She is still req uiring some pain medication. Whenever the hemoglobin gets better, whenever the patient tolerates t, and can take medication by mouth, then she will be discharged home. We asked for the help from true hospitalist to help us with the sugar control and hypertension control. She also has history of DV Ts, so we encouraged her the ambulation, also incentive spirometry. HM/MODL Voice ID: [id number] Report ID: [id number]
[2019-09-09] MEDS: HYDROCODONE/APAP 5/325 MG TAB PO PRN (19:42)
[2019-09-09 20:37] LABS: Hematocrit 25.5 % (36.0-45.0)
[2019-09-09 23:26] VITALS: O2SAT 96
[2019-09-10] MEDS: HYDROCODONE/APAP 5/325 MG TAB PO PRN ×2 (00:09→09:52)
[2019-09-10] MEDS ORDERED: NA CHLORIDE 0.9% 250 ML ONE (00:39)
[2019-09-10 06:15] LABS: Hematocrit 25.1 % (36.0-45.0)
[2019-09-10] MEDS: PANTOPRAZOLE 40MG TABLET PO SCH (07:30)
[2019-09-10] MEDS ORDERED: FE SULF/FA/VIT B COMP & C TAB PO SCH (08:00)
[2019-09-10] MEDS: ASCORBIC ACID 500 MG TABLET PO SCH (09:51)
[2019-09-10] MEDS: RIVAROXABAN 10 MG TABLET PO SCH (09:51)
[2019-09-10] MEDS: LINAGLIPTIN 5 MG PO SCH (09:52)
[2019-09-10 10:44] VITALS: BP 104/57; TEMP 96.8
--- NOTE | 2019-09-10 12:16 | P.DS ---
Admission Date: 09/10/19 Discharge Date: 09/10/19 Disposition: ROUTINE DISCHARGE Discharge Condition: GOOD Reason for Admission: Status post radical mastectomy - Problems (1) Chronic anemia Current Visit: Yes Status: Acute (2) Breast cancer Current Visit: Yes Status: Chronic Qualifiers: Breast location: upper outer quadrant of breast Patient sex: female Laterality: right (3) DM type 2 (diabetes mellitus, type 2) Current Visit: Yes Status: Chronic (4) History of DVT (deep vein thrombosis) Current Visit: Yes Status: Chronic Hospital Course: unremarkabl Vital Signs/Physical Exam: Temp Pulse Resp BP Pulse Ox 96.8 F 97 H 16 104/57 L 98 09/10/19 08:00 09/10/19 08:00 09/10/19 08:00 09/10/19 08:00 09/10/19 08:00 General: Alert, In no apparent distress, Oriented x3, Cooperative HEENT: PERRLA, EOMI Neck: Supple Respiratory: Normal air movement Cardiovascular: No edema, Normal pulses Gastrointestinal: Normal bowel sounds, Soft and benign, No rebound, No guarding Musculoskeletal: No erythema, No warmth Integumentary: No rashes, No breakdown, No erythema, No warmth, No cyanosis, Other (intact surgical site, no edeme, NA clear) Neurological: Normal speech, Normal affect Laboratory Data at Discharge: WBC 12.8 K/uL (4.3-10.9) H D 09/09/19 05:50 Hgb 8.0 g/dL (12.0-15.0) L 09/10/19 05:46 Hct 25.1 % (36.0-45.0) L 09/10/19 05:46 Plt Count 230 K/uL (152-406) 09/09/19 05:50 Sodium 143 mmol/L (136-145) 09/09/19 05:50 Potassium 4.8 mmol/L (3.5-5.1) 09/09/19 05:50 BUN 23 mg/dL (7-18) H 09/09/19 05:50 Creatinine 1.46 mg/dL (0.55-1.3) H 09/09/19 05:50 Glucose 115 mg/dL (74-106) H 09/09/19 05:50 Home Medications: Linagliptin [Tradjenta] 5 mg PO DAILY 02/19/17 Pantoprazole [Protonix Tab] 40 mg PO DAILY 02/19/17 Ropinirole HCl [Requip] 0.5 mg PO BEDTIME PRN 02/19/17 Ascorbic Acid [Vitamin C] 1,000 mg PO DAILY 03/30/19 Iron Fum & Ps Cmp/Vit C & B [Integra Capsule] 1 each PO DAILY 03/30/19 Rivaroxaban [Xarelto*] 10 mg PO DAILY 03/30/19 Ondansetron HCl [Zofran] 4 mg SQ Q6HP PRN 06/22/19 Hydrocodone 5/APAP 325 [Sod 5/325*] 1 tab PO Q4H PRN tab 09/10/19 Patient Discharge Instructions: LEave dressing intact. REcord NA output q24h. COntinue glucose and anticoagulation previous home meds Diet: ADA Activity: No lifting more than 10 lbs Followup: Gordon Tabares MD [ACTIVE - CAN ADMIT] - 1 Week
== END 2019-09-10 13:53 | disposition home health service (06) | DRG 582 ==
LOC: OR 07:43 → INTOOBSV 12:28 → 2ND 12:28 → OBSVTOIN 09-10 11:47
PROVIDERS: ADMIT Surgery; ATTEND Surgery
PROC: 0HTT0ZZ Resection of Right Breast, Open Approach (ICD-10-PCS; principal; 2019-09-09)
PROC: 0KXF0Z5 Transfer Right Trunk Muscle, Latissimus Dorsi Myocutaneous Flap, Open Approach (ICD-10-PCS; 2019-09-09)
PROC: 30233N1 Transfusion of Nonautologous Red Blood Cells into Peripheral Vein, Percutaneous Approach (ICD-10-PCS; 2019-09-10)
DX: C50.411 Malignant neoplasm of upper-outer quadrant of right female breast (principal); Z68.42 Body mass index [BMI] 45.0-49.9, adult; D64.9 Anemia, unspecified; I10 Essential (primary) hypertension; E11.9 Type 2 diabetes mellitus without complications; E66.01 Morbid (severe) obesity due to excess calories; Z79.899 Other long term (current) drug therapy; Z79.01 Long term (current) use of anticoagulants; Z79.891 Long term (current) use of opiate analgesic; Z90.710 Acquired absence of both cervix and uterus; Z86.718 Personal history of other venous thrombosis and embolism; Z86.711 Personal history of pulmonary embolism; Z92.21 Personal history of antineoplastic chemotherapy
CPT/HCPCS: 36415; 36430; 71046; 80048; 81003; 81015; 82947; 85014; 85018; 85025; 86850; 86900; 86901; 88307; 88309; 93005; 97116; 97161; 97530; G0378; J0690; J1100; J1170; J2250; J2405; J2704; J2710; J3010; J7030; P9016

== ENCOUNTER 2020-03-06 07:23 | Day surgery (SDC) | payer OTHER ==
[2020-03-02 15:07] LABS: Basophils % 0.4 % (0-1.3); Hematocrit 31.7 % (36.0-45.0); Lymphocytes % 15.9 % (15.3-44.8); MPV 8.1 fL (7.6-11.3); RBC Red Blood Cell Count 3.59 M/uL (3.86-4.86)
[2020-03-02 15:21] LABS: Potassium 4.3 mmol/L (3.5-5.1)
[2020-03-06] MEDS ORDERED: FENTANYL CITR 100 MCG/2 ML ONE (08:16)
[2020-03-06] MEDS ORDERED: propofoL 200 MG/20 ML VIAL IV ONE (08:16)
[2020-03-06] MEDS ORDERED: LIDOCAINE 2% MPF 5 ML VIAL ONE (08:17)
[2020-03-06] MEDS ORDERED: CEFAZOLIN/SWI 1gm 1 GM/10 ML SYR ONE (08:17)
[2020-03-06] MEDS ORDERED: NA CHLORIDE 0.9% 1,000 ML ONE (08:17)
[2020-03-06] MEDS ORDERED: MIDAZOLAM HCL 2 MG/2 ML INJ ONE (08:17)
[2020-03-06] MEDS ORDERED: ONDANSETRON 4 MG/2 ML VIAL ONE (08:18)
[2020-03-06] MEDS ORDERED: EPHEDRINE SULF 50 MG/ML VIAL ONE ×2 (08:21→08:50)
[2020-03-06] MEDS ORDERED: SCOPOLAMINE HYDROBROMIDE PATCH TD ONE (08:36)
[2020-03-06] MEDS ORDERED: GLYCOPYRROLATE 0.2 MG/ML SYR ONE (08:50)
--- NOTE | 2020-03-06 09:10 | P.BOP ---
Preoperative diagnosis: breast cancer Postoperative diagnosis: same Primary procedure: Removal of portacath Estimated blood loss: <10cc Specimen: intact portacath Findings: as above Anesthesia: General Complications: None Transferred to: Recovery Room Condition: Good
[2020-03-06 09:23] VITALS: TEMP 97
--- NOTE | 2020-03-06 11:01 | OP ---
Date of Procedure: 03/06/2020 Surgeon: Gordon Tabares MD Preoperative Diagnosis: Breast cancer. Postoperative Diagnosis: Breast cancer. Procedure: Removal of Port-A-Cath. Anesthesia: General plus local. Indications: This is a case of a 64-year-old patient who comes to us with a history of a breast canc er status post chemotherapy, now need the Port-A-Cath removed. Benefits, alternatives, and risks ful ly explained which include, but not limited to infection, bleeding, damage to adjacent structures, an esthesia complication, pulmonary emboli, [place] and even . She also understands this may not reliev e any symptoms. She might need more than one surgical intervention. She understood, signed a consen t. She wants to be completely asleep, so anesthesia arranged for that. Description Of Procedure: The patient was brought to the operating room, placed in supine position. Anesthesia was done without complication. Left chest was prepped and draped in a sterile fashion. Local anesthesia was applied over the area after clearing time-out and local anesthesia was applied a nd sharp incision of the skin. Port-A-Cath was then removed from the subcutaneous tissue and then pu lled carefully applying pressure. Port-A-Cath came back intact. 3-0 chromic was used to close subcu taneous tissue and then subcuticular 3-0 chromic and Steri-Strips on top. Sponge count and instrumen t counts were correct. Patient tolerated the procedure well. Patient was sent to recovery in stable conditio n. ERNESTO/JADE Voice ID: [id number] Report ID: [id number]
--- NOTE | 2020-03-06 11:07 | DS ---
Diagnosis: Breast cancer. Procedure: Removal of Port-A-Cath. Disposition: Home. Activity: As tolerated. No heavy lifting. Followup: Follow in my office in 1 week. Call for appointment at [phone]. Discharge Instructions: Keep the area dry for 48 hours, then may shower. Keep Steri-Strip intact. Medications: Include Tylenol No. 3 q.4 hours p.r.n. pain. ERNESTO/JADE Voice ID: [id number] Report ID: [id number]
[2020-03-06 11:52] VITALS: BP 121/86; O2SAT 98
--- OUTSIDE RECORDS SUMMARY | 2020-03-09 02:37 | XMS REPORT ---
:1955 Author Organization [employer] Care Team Providers Name Role Phone Figueroa, Na Provider Role Unavailable Allergies, Adverse Reactions, Alerts Substance Reaction Event Type N.K.D.A. 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 Active Problem HTN (hypertension) I10 Active Assessment Deep venous thrombosis I82.409 Activ e Problem Allergic rhinitis J30.9 Active Assessment Other iron deficiency anemia D50.8 Active Problem Chronic generalized pain R52 Act sharri Problem Family history of diabetes mellitus Z83.3 Active Problem Deep venous thrombosis I82.409 Activ e Problem Need for assistance due to unsteady R26.89 Active gait Problem Unsteady gait R26.81 Active Assessment Hyperlipidemia, unspecified E78.5 Active Assessment Restless leg syndrome G25.81 Active Problem Type 2 diabetes mellitus with other E11.69 Active specified complication Assessment CKD (chronic kidney disease) stage N18.3 Active 3, GFR 30-59 ml/min Problem Situational insomnia F51.09 Active Problem Controlled type 2 diabetes mellitus E11.9 Active without complication, unspecified 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 status Problem 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 Active Problem Other iron deficiency anemia D50.8 Active Assessment Medicare annual wellness visit, Z00.00 Active subsequent Assessment Type 2 diabetes mellitus with other E11.69 Active specified complication Assessment HTN (hypertension) I10 Active Problem Former smoker Z87.891 Active Problem Morbid obesity E66.01 Active Problem CKD (chronic kidney disease) stage N18.3 Active 3, GFR 30-59 ml/min Problem Restless leg syndrome G25.81 Active Medications Medication Code Code Instructions Start End Status Dosage System Date Date OneTouch Verio [facility] 94912453020 w/Device Active USE WITH TEST STRIPS TO TEST BLOOD SUGAR Betamethasone [facility] 49990580786 0.05 % Active 1 appl ication Dipropionate Aug Externally to a ffected Once a day area Xarelto [facility] 06181666644 20 MG Orally Active 1 table t with Once a day food Requip [facility] 78105456108 0.5 MG Orally Active 1 tabl et 1 to Once a day 3 hours before bedtime Benzonatate ND 82901030546 100 MG Orally Jun 04, Active 1 capsule as Three times a 2019 needed day PRN cough Calcipotriene [facility] 38813755776 0.005 % Active APPLY 1-2 GRAMS TOPICALLY TO AFFECTED AREA 2-4 TIMES PER DAY. DO NOT APPLY TO FACE. Simple [facility] 22313180938 - Active USE WITH Diagnostics LANCETS TO Lancing Dev TEST BLOOD SUGAR Pharmacist Choice [facility] 11860320762 - Active US E TO TEST Alcohol BLOOD SUGAR 2 TIMES A DAY Crestor [facility] 38726347967 5 MG Orally Active 1 tablet Once a day Pantoprazole [facility] 04561317816 40 Orally Once Active 1 tablet Sodium a day Pharmacist Choice [facility] 46733934884 - Active US E TO TEST Lancets BLOOD SUGAR 2 TIMES A DAY Tradjenta [facility] 65845356220 5 MG Active TAKE 1 TAB LET BY MOUTH EVERY DAY Clotrimazole [facility] 46419516372 1 % Externally Active 1 application Twice a day to affected area Ultram [facility] 87791754782 50 MG Orally Active 1 table t as every 4 hrs needed Crestor [facility] 48917430319 5 Orally Once Active 1 tabl et a day Zyrtec Allergy [facility] 30243520609 10 MG Orally Active 1 tablet Once a day Protonix ND 71834186416 20 MG Orally Active 1 tabl et Once a day Flonase [facility] 82273312170 50 MCG/ACT Active 1 spray i n Nasally Once a each nost ril day Tradjenta [facility] 93792874165 5 MG Orally Active 1 tabl et Once a day Gabapentin ND 77702784600 600 MG Orally Active 1 t ablet three times a day FreeStyle Eagle [facility] 98018486927 - SC daily Sept Active a s directed 14 Day Sensor 2018 Alcohol Pads [facility] 43071941869 70 % Active CLEAN T HE SKIN BY USING 1 PAD ON THE AFFECTED AREA BEFORE APPLYING ANY TOPICAL CREAM. 2-3 TIMES DAILY Pantoprazole [facility] 46628649795 40 MG Active TAKE 1 TABLET Sodium BY MOUTH EVERY DAY Montelukast [facility] 17204929828 10 Orally Once Active 1 tablet in Sodium a day the evening Hydrocortisone [facility] 58947027564 0.2 % Active APPLY 1-2 Valerate GRAMS TOPICALLY TO AFFECTED AREA 1-2 TIMES PER DAY. DO NOT APPLY TO FACE, GROIN, UNDERARMS, UNLESS DIRECTED BY PHYSICIAN. Kelsyfarhad Guillermo [facility] 38044581756 - daily Sept Active as directed 14 Day [place] 2018 Beata Anthony [facility] 50261597334 - twice a day Active USE TO TEST BLOOD SUGAR 2 TIMES A DAY Results No Known Results Summary Purpose eClinicalWorks Submission
--- OUTSIDE RECORDS SUMMARY | 2020-03-09 02:37 | XMS REPORT ---
:1955 Author Organization [employer] Care Team Providers Name Role Phone Figueroa, Na Provider Role Unavailable Allergies No Known Allergies Problems Problem Type Condition Code Onset Dates Condition Statu s Problem Chronic generalized pain R52 Act sharri Problem Family history of diabetes mellitus Z83.3 Active Problem Deep venous thrombosis I82.409 Activ e Problem Need for assistance due to unsteady R26.89 Active gait Assessment Chronic generalized pain R52 Act sharri Problem Unsteady gait R26.81 Active Problem Type 2 diabetes mellitus with other E11.69 Active specified complication Problem Situational insomnia F51.09 Active Problem Controlled type 2 diabetes mellitus E11.9 Active without complication, unspecified bar pointer insulin use status Problem 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 Active Problem Other iron deficiency anemia D50.8 Active Assessment CKD (chronic kidney disease) stage N18.3 Active 3, GFR 30-59 ml/min Assessment 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
--- OUTSIDE RECORDS SUMMARY | 2020-03-09 02:37 | XMS REPORT | Continuity of Care Document ---
:1955 Author Organization [facility] t Address [address] [place] [address] Care Team Providers Name Role Phone Unavailable Unavailable Unavailable Problems Condition Condition Condition Status Onset Resolution Last Treating Co mments Source Name Details Category Date Date Treatment Clinician Date Malignant Malignant Problem Active Tom curtis neoplasm Neoplasm 4- Family of female of Female 00:00: Prac tic breast Breast 00 e Essential Essential Problem Active Tom curtis hypertensi Hypertensi 4-01 Fa martita on on 00:00: Practic 00 e Insertion Insertion Problem Active Tom curtis of of 4- Family implantabl Implantabl 00:00: Pr actic e venous e Venous 00 e access Access port Port Diabetic Diabetic Problem Active Muñoz ge polyneurop Polyneurop 3-27 Sandeep anders athisra ath 00:00: Practic 00 e Inflammato Inflammato Problem Active V illage ry ry 3-27 Family disorder Disorder 00:00: Practi c 00 e Diabetes Diabetes Problem Active Muñoz ge mellitus Mellitus 7-15 Family 00:00: Practic 00 e Deep Deep Problem Active [facility] venous Venous 7-15 Family thrombosis Thrombosis 00:00: Pr actic 00 e Gastroesop Gastroesop Problem Active V illage hageal hageal 7-15 Family reflux Reflux 00:00: Practic disease Disease 00 e Chronic Chronic Problem Active [facility] kidney Kidney 7-15 Family disease Disease 00:00: Practic stage 3 Stage 3 00 e Chronic Chronic Problem Active [facility] back pain Back Pain 7-15 Fami ly 00:00: Practic 00 e Body mass Body Mass Problem Active Tom curtis index 40+ Index 40+ 7-15 Fami ly - severely - Severely 00:00: Pr actic obese Obese 00 e Allergies, Adverse Reactions, Alerts This patient has no known allergies or adverse reactions. Social History Smoking Status Start Date Stop Date Source Former Smoker Aaron Family P elmer Medications Ordered Filled Start Stop Current Ordering Indication Dosage Frequency Signature Comments Components Source Medication Medication Date Date Medication? Clinician (SIG) Name Name Rio Pate Yes Na [place] as [facility] 14 02-05 directed Tanya es - Day Sensor Day Sensor 00:00: M emoria l [facility] ent Clinics Rio Pate Yes Na [place]ero[place] as [facility] 14 02-05 directed Tanya es - Day [place] Day [place] 00:00: M emoria 00 l [facility] ent Clinics Benzonatate Benzonatate Yes Na [place] [address] [facility] as needed [facility] - 00:[facility]: Memoria 00 [facility] ent [facility] Claritin 10 Claritin 10 No 1 Q1D Claritin [place] mg tablet mg tablet 10 mg Fami ly Take 1 Take 1 tablet Practic tablet tablet Take 1 e every day every day tablet by oral by oral every day route in route in by oral the the route in morning. morning. the morning. gabapentin gabapentin No 1capsul TID gabapentin [facility] 300 mg 300 mg e(s) 300 mg Family capsule capsule capsule Practi c Take 1 Take 1 Take 1 e capsule 3 capsule 3 capsule 3 times a day times a day times a by oral by oral day by route with route with oral route meals. meals. with meals. ondansetron ondansetron No 2 Q12H ondansetro [facility] 4 mg 4 mg n 4 mg Family disintegrat disintegrat disintegra Practic ing tablet ing tablet ting e Take 2 Take 2 tablet tablets tablets Take 2 every 12 every 12 tablets hours by hours by every 12 oral route. oral route. hours by oral route. pantoprazol pantoprazol No 1 Q1D pantoprazo [place] e 40 mg e 40 mg le 40 mg Famil y tablet,danita tablet,danita tablet,del Practic yed release yed release ayed e Take 1 Take 1 release tablet tablet Take 1 every day every day tablet by oral by oral every day route in route in by oral the the route in morning. morning. the morning. Tradjenta 5 Tradjenta 5 No 1 Q1D Tradjenta [place] mg tablet mg tablet 5 mg Famil y Take 1 Take 1 tablet Practic tablet tablet Take 1 e every day every day tablet by oral by oral every day route with route with by oral meals. meals. route with meals. tramadol 50 tramadol 50 No 1 Q6H tramadol [place] mg tablet mg tablet 50 mg Fami ly Take 1 Take 1 tablet Practic tablet tablet Take 1 e every 6 every 6 tablet hours by hours by every 6 oral route. oral route. hours by oral route. Xarelto 10 Xarelto 10 No 1 Q1D Xarelto 10 [place] mg tablet mg tablet mg tablet Family Take 1 Take 1 Take 1 Practic tablet tablet tablet e every day every day every day by oral by oral by oral route. route. route. zolpidem 5 zolpidem 5 No 1 Q1D zolpidem 5 Village mg tablet mg tablet mg tablet Family Take 1 Take 1 Take 1 Practic tablet tablet tablet e every day every day every day by oral by oral by oral route at route at route at bedtime. bedtime. bedtime. Tradjenta Tradjenta Yes Na [place] [address] [facility] Memoria [facility] ent Clinics Crestor Crestor Yes Na [place] [address] [facility] Clotrimazol Clotrimazol Yes Na [place] [address] [facility] e e applicatio [facility] - n to Memoria affected l area [facility] ent Clinics Ultram Ultram Yes Na [place] [address] as needed kes - Memoria [facility] ent [facility] Hydrocortis Hydrocortis Yes Na [place] APPLY 1-[address] one one GRAMS [facility] - Valerate Valerate TOPICALLY Me moria TO l AFFECTED [facility] AREA 1-2 ent TIMES PER Clinics DAY. DO NOT APPLY TO FACE, GROIN, UNDERARMS, UNLESS DIRECTED BY PHYSICIAN. Pantoprazol Pantoprazol Yes Na [place] [address] e Sodium e Sodium [facility] ent [facility] Montelukast Montelukast Yes Na [place] [address] Sodium Sodium in the [facility] Pantoprazol Pantoprazol Yes Na [place] TAKE [address] [facility] [facility] e Sodium e Sodium TABLET BY [place] kes - MOUTH Memoria EVERY DAY [facility] ent [facility] Calcipotrie Calcipotrie Yes Na [place] APPLY 1-[address] ne ne GRAMS [facility] - TOPICALLY Memoria TO l AFFECTED [facility] AREA 2-4 ent TIMES PER Clinics DAY. DO NOT APPLY TO FACE. Requip Requip Yes Na [place] [address] to 3 hours [facility] - before Memoria bedtime l [facility] ent Clinics Alcohol Alcohol Yes Na Figueroa CLEAN THE C [facility] Pads Pads SKIN BY [facility] - USING 1 Memoria PAD ON THE l AFFECTED [facility] AREA ent BEFORE Clinics APPLYING ANY TOPICAL CREAM. 2-3 TIMES DAILY OneTouch OneTouch Yes Na Figueroa USE TO [facility] Verio Verio TEST BLOOD [facility] - SUGAR 2 Memoria TIMES A l DAY [facility] ent Clinics Xarelto Xarelto Yes Na [place] [address] with food [facility] - Memoria l [facility] ent Clinics Pharmacist Pharmacist Yes Na [place] USE TO [facility] Choice Choice TEST BLOOD [facility] - Lancets Lancets SUGAR 2 Memori a TIMES A l DAY [facility] ent Clinics Protonix Protonix Yes Na [place] [address] [facility] Memoria l [facility] ent [facility] Flonase Flonase Yes Na [place] [address] each [facility] - nostril Memoria l [facility] ent Clinics Gabapentin Gabapentin Yes Na [place] [address] [facility] - Memoria l [facility] ent Clinics OneTouch OneTouch Yes Na [place] USE WITH [facility] Verio Verio TEST [facility] - STRIPS TO Memoria TEST BLOOD l SUGAR [facility] ent Clinics Simple Simple Yes Na [place] USE WITH [facility] LANCETS TO [facility] - Lancing Dev Lancing Dev TEST BLOOD Memoria SUGAR l [facility] ent Clinics [facility] Yes Na [place] [address] Allergy Allergy [facility] - Memoria l [facility] ent Clinics Betamethaso Betamethaso Yes Na [place] [address] [facility] [facility] ne ne applicatio [facility] - Dipropionat Dipropionat n to M emoria e Aug e Aug affected l area [facility] ent Clinics Pharmacist Pharmacist Yes Na Fig[place]ero[place] USE TO [facility] [employer] TEST BLOOD [facility] - Alcohol Alcohol SUGAR 2 Memori a TIMES A l DAY [facility] ent Clinics Immunizations Ordered Filled Immunization Date Status Comments [facility] e Immunization Name Name Afluria single dose Afluria single dose 2019-04-[address] [facility] 00:[facility]00 [facility] influenza, influenza, 2019-03-02 Completed [facility] injectable, injectable, 00:00:00 Practice quadrivalent quadrivalent Vital Signs Vital Name Observation Time Observation Value Comments Source BP Diastolic 2019-08-30 00:00:00 80 mm[Hg] [facility] Height 2019-08-30 00:00:00 66 [in_i] [facility] BMI (Body Mass 2019-08-30 00:00:00 49.4 kg/m2 [facility]) Practice BP Systolic 2019-08-30 00:00:00 117 mm[Hg] [facility] Body Weight 2019-08-30 00:00:00 306 [lb_av] [facility] Procedures This patient has no known procedures. Encounters Start End Encounter Admission Attending Care Care Encounter Source Date/Time Date/Time Type Type Clinicians Facility Department ID 2020-02-17 2020-02-17 Outpatient [facility] [id number] [facility] 2020-02-11 2020-02-11 [facility] [id number] 15:11:00 15:11:00 t [email or web address] [facility] l Medicine Outpati ent Clinics 2019-12-28 2019-12-28 [facility] [id number] 15:00:00 15:00:00 t [email or web address] [facility] l Medicine Outpati ent Clinics 2019-12-06 2019-12-06 [facility] [id number] 09:10:00 09:10:00 t [email or web address] [facility] l Medicine Outpati ent Clinics 2019-11-23 2019-11-23 [facility] [id number] 15:19:00 15:19:00 t [email or web address] [facility] l Medicine Outpati ent Clinics 2019-11-17 2019-11-[address] [id number] 13:21:00 13:21:00 [facility] [employer] vida é feita de [employer] [facility] l Group Outpati ent Clinics 2019-11-17 2019-11-17 [facility] [id number] 12:20:00 12:20:00 t [email or web address] [facility] l Medicine Outpati ent Clinics 2019-11-16 2019-11-16 [facility] [id number] 10:41:00 10:41:00 [place] [employer] [address] - [address] [facility] Medicine l Medicine Outpati ent Clinics 2019-10-27 2019-10-27 [facility] [id number] 16:38:00 16:38:00 t [facility] Road Luke s - Road [facility] Medicine l Medicine Outpati ent Clinics 2019-10-08 2019-10-08 [facility] [id number] 08:20:00 08:20:00 [place] [employer] s - Drive [facility] Medicine l Medicine Outpati ent Clinics 2019-09-28 2019-09-28 [facility] [id number] 16:47:00 16:47:00 t [employer] s - Drive [facility] Medicine l Medicine Outpati ent Clinics 2019-08-30 2019-08-30 [facility] [id number] [facility] 00:00:00 00:00:00 [facility] juan dixon TRANSPORT ANALYST: Medical - Practi manuel [address] [email or web address], [address] [id number], [place] [address] , Ph. 2019-08-10 2019-08-10 [facility] [id number] 13:52:00 13:52:00 t [employer] s - Drive [facility] Medicine Medicine Outpati ent Clinics 2019-08-05 2019-08-05 [facility] [id number] 15:16:00 15:16:00 t [employer] s - Drive [facility] Medicine l Medicine Outpati ent Clinics 2019-07-27 2019-07-27 [facility] [id number] 09:40:00 09:40:00 t [employer] s - Drive [facility] Medicine l Medicine Outpati ent Clinics 2019-07-09 2019-07-09 [facility] [id number] 14:18:00 14:18:00 t [place] [employer] s - Drive [facility] Medicine l Medicine Outpati ent Clinics 2019-06-11 2019-06-11 [facility] [id number] 16:26:00 16:26:00 [place] [employer] [address] s - Drive [facility] Medicine l Medicine Outpati ent Clinics 2019-04-26 2019-04-26 [facility] [id number] 08:00:00 08:00:00 [place] [employer] [address] s - Drive [facility] l Medicine Outpati ent Clinics 2019-04-16 2019-04-16 [facility] [id number] 15:43:00 15:43:00 [place] [employer] [address] s - Drive [facility] Medicine l Medicine Outpati ent Clinics 2019-04-07 2019-04-07 [facility] [id number] 10:20:00 10:20:00 [place] [employer] s - Drive [facility] Medicine Outpati ent Clinics 2019-03-03 2019-03-03 [facility] [id number] 06:04:00 06:04:00 [place] [employer] s - Drive [facility] Medicine l Medicine Outpati ent Clinics 2019-02-05 2019-02-05 [facility] [id number] 16:00:00 16:00:00 [place] [employer] s - Drive [facility] l Medicine Outpati ent Clinics 2018-12-22 2018-12-22 [facility] [id number] 09:40:00 09:40:00 [place] [employer] - Drive [facility] Medicine Outpati ent Clinics 2018-07-27 2018-07-27 [facility] [id number] 08:30:00 08:30:00 [place] [employer] - Drive [facility] l Medicine Outpati ent Clinics 2018-07-13 2018-07-13 [facility] [id number] [address] 16:18:00 16:18:00 [place] [employer] s - Drive [facility] l Medicine Outpati ent Clinics 2018-07-09 2018-07-09 [facility] [id number] 08:30:00 08:30:00 [place] [employer] - Drive [facility] Medicine Outpati ent Clinics 2018-06-15 2018-06-15 [facility] [id number] 11:46:00 11:46:00 [place] [employer] s - Drive [facility] Medicine Outpati ent Clinics 2018-06-12 2018-06-12 [facility] [id number] 13:54:00 13:54:00 [place] [employer] - [employer] [facility] Medicine Outpati ent Clinics 2018-06-03 2018-06-03 [facility] [id number] 11:25:00 11:25:00 t [employer] s - [employer] [facility] Medicine Outpati ent Clinics 2018-04-22 2018-04-22 [facility] [id number] 10:45:00 10:45:00 t [employer] s - [employer] [facility] Medicine Outpati ent Clinics 2017-11-03 2017-11-03 [facility] [id number] 15:16:00 15:16:00 t [employer] s - Drive [facility] Medicine Outpati ent Clinics Results This patient has no known results.
--- OUTSIDE RECORDS SUMMARY | 2020-03-09 02:37 | XMS REPORT ---
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
== END 2020-03-06 10:25 | disposition home or self-care (01) ==
LOC: OR 07:23
PROVIDERS: ATTEND Surgery
PROC: 0JPT0WZ Removal of Totally Implantable Vascular Access Device from Trunk Subcutaneous Tissue and Fascia, Open Approach (ICD-10-PCS; principal; 2020-03-06 08:30)
DX: Z45.2 Encounter for adjustment and management of vascular access device (principal); C50.919 Malignant neoplasm of unspecified site of unspecified female breast; Z20.828 Contact with and (suspected) exposure to other viral communicable diseases
CPT/HCPCS: 85025; 80048; 36415; 82947; 88300; 36590; U0002; J2704; J2250; J3010; J0690; J7030; J2405

== ENCOUNTER 2024-10-02 11:38 | Emergency (ER) | payer OTHER ==
--- OUTSIDE RECORDS SUMMARY | 2024-10-02 11:44 | XMS REPORT | Continuity of Care Document ---
Author Name Unknown Address [address] [facility]. [address] [place] [address] Organization [facility] [place] Address [address] [facility] [place] [address] Care Team Providers Care Master Plumber Name Role Phone Floridalma REESE, Flaco Garcia Primary Care Physician Felicia Fall Attending Clinician Unavailable Shilpi Rico Attending Clinician Unavailable Renee Figueroa Attending Clinician Unavailable Ige-Odunuga_J_AH Attending Clinician Unavailable Ige-Odunuga_J_AH Admitting Clinician Unavailable Payers Payer Name Policy Type Policy Number Effective Date Expirati on Date Source [employer] MEDIC[employer] DUAL Medicare [id number] 2023 00:00:00 [facility] MCR Dual Complete (HMO-POS D-SNP) [id number] 2022 00:00:00 [facility] Medicare Replace C1 [id number] 2020 00:00:00 [facility] MEDICARE NOVITAS MB [id number] 2015 00:00:00 [facility] MEDICARE NOVITAS MB [id number] 2015 00:00:00 [facility] [employer] Medicare Replace C1 [id number] 2020 00:00:00 [facility] Replace C1 [id number] 2020 00:00:00 [facility] MEDICARE NOVITAS MB [id number] 2015 00:00:00 [facility] MEDICARE NOVITAS MB [id number] 2015 00:00:00 [facility] [employer] Medicare Replace C1 [id number] 2020 00:00:00 [facility] MEDICARE NOVITAS MB [id number] 2015 00:00:00 [facility] [employer] Medicare Replace C1 [id number] 2020 00:00:00 [facility] MEDICARE NOVITAS MB [id number] 2015 00:00:00 [facility] [employer] Medicare Replace C1 [id number] 2020 00:00:00 [facility] [employer] (MEDICARE REPLACEMENT HMO) [id number] 2020 00:00:00 [employer] [place] (MEDICARE REPLACEMENT/ADVANT AGE - HMO) [id number] 00:00:00 Problems Condition Name Condition Details Condition Category Status Onset Date Resolution Date Last Treatment Date Treating Clinician Comments Source Malignant neoplasm of female breast Malignant Neoplasm of Female Breast Problem Active 08-31 00:00: 00 [facility] Essential hypertensi on Essential Hypertensi on Problem Active 08-31 00:00: 00 [facility] Insertion of implantabl e venous access port Insertion of Implantabl e Venous Access Port Problem Active 08-31 00:00: 00 [facility] Diabetic polyneurop athy Diabetic Polyneurop athy Problem Active 08-26 00:00: 00 [facility] Inflammato ry disorder Inflammato ry Disorder Problem Active 08-26 00:00: 00 [facility] Diabetes mellitus Diabetes Mellitus Problem Active 12-14 00:00: 00 [facility] Chronic back pain Chronic Back Pain Problem Active 12-14 00:00: 00 [facility] Pract[facility] e Hypertensi on HTN (hypertens ion) Problem [facility] [id number] Unsteady gait Problem [facility] [id number] Type 2 diabetes mellitus with other specified complicati on Problem [facility] Anemia in chronic kidney disease Anemia in chronic kidney disease Problem [facility] Restless legs syndrome Restless leg syndrome Problem [facility] Ex-smoker Former smoker Problem [facility] [id number] Gastroesop hageal reflux disease, unspecifie d whether esophagiti s present Problem [facility] [id number] Primary osteoarthr itis of left knee Problem [facility] [id number] BMI 50.0-59.9, adult Problem [facility] [id number] History of breast cancer Problem [facility] [id number] Type 2 diabetes mellitus with other diabetic kidney complicati on Problem [facility] Allergic rhinitis caused by pollen Seasonal allergic rhinitis due to pollen Problem [facility] Hyperlipid emia Hyperlipid emia, unspecifie d Problem [facility] Anemia of chronic renal failure Anemia due to stage 3 chronic kidney disease Problem [facility] Chronic kidney disease stage 3 (disorder) +5th digit eff 03/02/20*CK D (chronic kidney disease) stage 3, GFR 30-59 ml/min Problem [facility] Malignant neoplasm of upper-oute r quadrant of female breast Malignant neoplasm of upper-oute r quadrant of right female breast Problem [facility] Chronic kidney disease stage 3B (disorder) Chronic kidney disease, stage 3b Problem [facility] Type II diabetes mellitus without complicati on Controlled type 2 diabetes mellitus without complicati on, unspecifie d group home insulin use status Problem [facility] Obesity Body mass index (BMI) of 30.0 to 39.9 Problem [facility] [id number] Need for assistance due to unsteady gait Problem [facility] [id number] Drug-induc ed polyneurop athy Problem [facility] Deep venous thrombosis Deep venous thrombosis Problem [facility] Pain Chronic generalize d pain Problem [facility] Transient insomnia Situationa l insomnia Problem [facility] FH: Diabetes mellitus Family history of diabetes mellitus Problem [facility] Morbid obesity Morbid obesity Problem [facility] [id number] Other iron deficiency anemia Problem [facility] Allergic rhinitis Allergic rhinitis Problem [facility] Social History Social Habit Start Date Stop Date Quantity Comments Source History of Tobacco Use [facility] Sex Assigned At [facility] Smoking Status Start Date Stop Date Source Former Smoker 2024-08-17 00:00:00 2024-08-17 00:00:00 [facility] Never Smoker [facility] Medications Ordered Medication Name Filled Medication Name Start Date Stop Date Current Medication? Ordering Clinician Indication Dosage Frequency Signature (SIG) Comments Components Source benzonatate 100 mg capsule 08-18 00:00: 00 Yes 1mg Giovani Egan furosemide 20 mg tablet 08-18 00:00: 00 Yes 1mg Giovani Egan amitriptyli ne 25 mg tablet 08-18 00:00: 00 Yes 1mg Giovani Egan Xarelto 10 mg tablet 08-18 00:00: 00 Yes 1mg Giovani Egan ondansetron 8 mg disintegrat ing tablet 08-18 00:00: 00 Yes 1mg Giovani Egan duloxetine 20 mg capsule,del ayed release -18 00:00: 00 Yes mg Giovani Egan hydrocodone 7.5 mg-acetamin ophen 325 mg tablet 3-05 00:00: 00 Yes mg Giovani Egan letrozole 2.5 mg tablet 2- 00:00: 00 Yes mg Giovani Egan Jardiance 10 mg tablet 2-21 00:00: 00 Yes mg Giovani Egan Xarelto 10 mg tablet 2-10 00:00: 00 Yes mg Giovani Egan pantoprazol e 40 mg tablet,danita yed release 1- 00:00: 00 Yes mg Giovani Egan Combigan 0.2 %-0.5 % eye drops 1- 00:00: 00 Yes % Giovani Egan rosuvastati n 5 mg tablet 1-16 00:00: 00 Yes mg Giovani Egan ropinirole 0.5 mg tablet 1-08 00:00: 00 Yes mg Giovani Egan losartan 25 mg tablet 1-03 00:00: 00 Yes mg Giovani Egan gabapentin 800 mg tablet 1-02 00:00: 00 Yes mg Giovani Egan Tradjenta 5 mg tablet 2023-06 0- 00:00: 00 Yes mg Giovani Egan Hyalgan Hyalgan 2-05 00:00: 00 No 2mL [facility] BUPivacaine HCl BUPivacaine HCl 1- 00:00: 00 No 4mL [facility] Losartan Potassium 25 MG Losartan Potassium 25 MG 4-19 00:00: 00 No 1{table t} QD Losartan Potassium 25 MG Bupivicaine [place] Bupivicaine [place] 3-07 00:00: 00 No 2.5mg [facility] Kenalog (Triamcinol one) Kenalog (Triamcinol one) 7-29 00:00: 00 No 40mg [facility] Zofran 4 MG Zofran 4 MG No 1{table t} QD Zofran 4 MG Furosemide 20 MG Furosemide 20 MG No Furosemide 20 MG Montelukast Sodium 10 MG Montelukast Sodium 10 MG No 1{table t} Montelukas t Sodium 10 MG Xarelto 10 MG Xarelto 10 MG No 1{table t_with_ food} QD Xarelto 10 MG Gabapentin 800 MG Gabapentin 800 MG No 1{table t} BID Gabapentin 800 MG Letrozole 2.5 MG Letrozole 2.5 MG No 1{table t} QD Letrozole 2.5 MG Rosuvastati n Calcium 5 MG Rosuvastati n Calcium 5 MG No 1{table t} Rosuvastat in Calcium 5 MG rOPINIRole HCl 0.5 MG rOPINIRole HCl 0.5 MG No QD rOPINIRole HCl 0.5 MG Alcohol Pads 70 % Alcohol Pads 70 % No Alcohol Pads 70 % Safety Lancets 28G - Safety Lancets 28G - No Safety Lancets 28G - Claritin 10 mg tablet Take 1 tablet every day by oral route in the morning. Claritin 10 mg tablet Take 1 tablet every day by oral route in the morning. No 1 Q1D Claritin 10 mg tablet Take 1 tablet every day by oral route in the morning. [facility] DULoxetine HCl 20 MG DULoxetine HCl 20 MG No 1{capsu le} QD DULoxetine HCl 20 MG OneTouch Verio Flex System w/Device OneTouch Verio Flex System w/Device No OneTouch Verio Flex System w/Device Tradjenta 5 MG Tradjenta 5 MG No Tradjenta 5 MG HYDROcodone -Acetaminop hen 7.5-325 MG HYDROcodone -Acetaminop hen 7.5-325 MG No HYDROcodon e-Acetamin ophen 7.5-325 MG Mounjaro 10 MG/0.5ML Mounjaro 10 MG/0.5ML No Mounjaro 10 MG/0.5ML gabapentin 300 mg capsule Take 1 capsule 3 times a day by oral route with meals. gabapentin 300 mg capsule Take 1 capsule 3 times a day by oral route with meals. No 1capsul e(s) TID gabapentin 300 mg capsule Take 1 capsule 3 times a day by oral route with meals. [facility] ondansetron 4 mg disintegrat ing tablet Take 2 tablets every 12 hours by oral route. ondansetron 4 mg disintegrat ing tablet Take 2 tablets every 12 hours by oral route. No 2 Q12H ondansetro n 4 mg disintegra ting tablet Take 2 tablets every 12 hours by oral route. [facility] pantoprazol e 40 mg tablet,danita yed release Take 1 tablet every day by oral route in the morning. pantoprazol e 40 mg tablet,danita yed release Take 1 tablet every day by oral route in the morning. No 1 Q1D pantoprazo le 40 mg tablet,del ayed release Take 1 tablet every day by oral route in the morning. [facility] Tradjenta 5 mg tablet Take 1 tablet every day by oral route with meals. Tradjenta 5 mg tablet Take 1 tablet every day by oral route with meals. No 1 Q1D Tradjenta 5 mg tablet Take 1 tablet every day by oral route with meals. [facility] tramadol 50 mg tablet Take 1 tablet every 6 hours by oral route. tramadol 50 mg tablet Take 1 tablet every 6 hours by oral route. No 1 Q6H tramadol 50 mg tablet Take 1 tablet every 6 hours by oral route. [facility] Xarelto 10 mg tablet Take 1 tablet every day by oral route. Xarelto 10 mg tablet Take 1 tablet every day by oral route. No 1 Q1D Xarelto 10 mg tablet Take 1 tablet every day by oral route. [facility] zolpidem 5 mg tablet Take 1 tablet every day by oral route at bedtime. zolpidem 5 mg tablet Take 1 tablet every day by oral route at bedtime. No 1 Q1D zolpidem 5 mg tablet Take 1 tablet every day by oral route at bedtime. [facility] Immunizations Ordered Immunization Name Filled Immunization Name Date Status Comments Source FLUZONE HIGH DOSE OVER 65 FLUZONE HIGH DOSE OVER 65 2022-03-14 09:55:00 Completed [facility] FLUZONE HIGH DOSE OVER 65 FLUZONE HIGH DOSE OVER 65 2022-03-14 09:55:00 Completed [facility] FLUZONE HIGH DOSE OVER 65 FLUZONE HIGH DOSE OVER 65 2022-03-14 09:55:00 Completed [facility] FLUZONE HIGH DOSE OVER 65 FLUZONE HIGH DOSE OVER 65 2022-03-14 09:55:00 Completed [facility] FLUZONE HIGH DOSE OVER 65 FLUZONE HIGH DOSE OVER 65 2022-03-14 09:55:00 Completed [facility] FLUZONE HIGH DOSE OVER 65 FLUZONE HIGH DOSE OVER 65 2022-03-14 09:55:00 Completed [facility] FLUZONE HIGH DOSE OVER 65 FLUZONE HIGH DOSE OVER 65 2022-03-14 09:55:00 Completed [facility] FLUZONE HIGH DOSE OVER 65 FLUZONE HIGH DOSE OVER 65 2022-03-14 09:55:00 Completed [facility] FLUZONE HIGH DOSE OVER 65 FLUZONE HIGH DOSE OVER 65 2022-03-14 09:55:00 Completed [facility] FLUZONE HIGH DOSE OVER 65 FLUZONE HIGH DOSE OVER 65 2022-03-14 09:55:00 Completed [facility] FLUZONE HIGH DOSE OVER 65 FLUZONE HIGH DOSE OVER 65 2022-03-14 09:55:00 Completed [facility] FLUZONE HIGH DOSE OVER 65 FLUZONE HIGH DOSE OVER 65 2022-03-14 09:55:00 Completed [facility] FLUZONE HIGH DOSE OVER 65 FLUZONE HIGH DOSE OVER 65 2022-03-14 09:55:00 Completed [facility] FLUZONE HIGH DOSE OVER 65 FLUZONE HIGH DOSE OVER 65 2022-03-14 09:55:00 Completed [facility] FLUZONE HIGH DOSE OVER 65 FLUZONE HIGH DOSE OVER 65 2022-03-14 09:55:00 Completed [facility] Prevnar 20 (PCV20) Prevnar 20 (PCV20) 2021-11-20 09:13:00 Completed [facility] Prevnar 20 (PCV20) Prevnar 20 (PCV20) 2021-11-20 09:13:00 Completed [facility] Prevnar 20 (PCV20) Prevnar 20 (PCV20) 2021-11-20 09:13:00 Completed [facility] Prevnar 20 (PCV20) Prevnar 20 (PCV20) 2021-11-20 09:13:00 Completed [facility] Prevnar 20 (PCV20) Prevnar 20 (PCV20) 2021-11-20 09:13:00 Completed [facility] Prevnar 20 (PCV20) Prevnar 20 (PCV20) 2021-11-20 09:13:00 Completed [facility] Prevnar 20 (PCV20) Prevnar 20 (PCV20) 2021-11-20 09:13:00 Completed [facility] Prevnar 20 (PCV20) Prevnar 20 (PCV20) 2021-11-20 09:13:00 Completed [facility] Prevnar 20 (PCV20) Prevnar 20 (PCV20) 2021-11-20 09:13:00 Completed [facility] Prevnar 20 (PCV20) Prevnar 20 (PCV20) 2021-11-20 09:13:00 Completed [facility] Prevnar 20 (PCV20) Prevnar 20 (PCV20) 2021-11-20 09:13:00 Completed [facility] Prevnar 20 (PCV20) Prevnar 20 (PCV20) 2021-11-20 09:13:00 Completed [facility] Prevnar 20 (PCV20) Prevnar 20 (PCV20) 2021-11-20 09:13:00 Completed [facility] Prevnar 20 (PCV20) Prevnar 20 (PCV20) 2021-11-20 09:13:00 Completed [facility] Prevnar 20 (PCV20) Prevnar 20 (PCV20) 2021-11-20 09:13:00 Completed [facility] Prevnar 20 (PCV20) Prevnar 20 (PCV20) 2021-11-20 09:13:00 Completed [facility] Prevnar 20 (PCV20) Prevnar 20 (PCV20) 2021-11-20 09:13:00 Completed [facility] Prevnar 20 (PCV20) Prevnar 20 (PCV20) 2021-11-20 09:13:00 Completed [facility] Prevnar 20 (PCV20) Prevnar 20 (PCV20) 2021-11-20 09:13:00 Completed [facility] Prevnar 20 (PCV20) Prevnar 20 (PCV20) 2021-11-20 09:13:00 Completed [facility] Afluria Afluria 2021-04-24 08:56:00 Completed [facility]fluria Afluria 2021-04-24 08:56:00 Completed [facility] Afluria Afluria 2021-04-24 08:56:00 Completed [facility] Afluria Afluria 2021-04-24 08:56:00 Completed [facility] Afluria Afluria 2021-04-24 08:56:00 Completed [facility] Afluria Afluria 2021-04-24 08:56:00 Completed [facility] Afluria Afluria 2021-04-24 08:56:00 Completed [facility] Afluria Afluria 2021-04-24 08:56:00 Completed [facility] Afluria Afluria 2021-04-24 08:56:00 Completed [facility] Afluria Afluria 2021-04-24 08:56:00 Completed [facility] Afluria Afluria 2021-04-24 08:56:00 Completed [facility] Afluria Afluria 2021-04-24 08:56:00 Completed [facility] Afluria Afluria 2021-04-24 08:56:00 Completed [facility] Afluria Afluria 2021-04-24 08:56:00 Completed [facility] Afluria Afluria 2021-04-24 08:56:00 Completed [facility] Afluria Afluria 2021-04-24 08:56:00 Completed [facility] Afluria Afluria 2021-04-24 08:56:00 Completed [facility] Afluria Afluria 2021-04-24 08:56:00 Completed [facility] Afluria Afluria 2021-04-24 08:56:00 Completed [facility] Afluria Afluria 2021-04-24 08:56:00 Completed [facility] Afluria Afluria 2021-04-24 08:56:00 Completed [facility] Afluria 2021-04-24 08:56:00 Completed [facility] Afluria 2021-04-24 08:56:00 Completed [facility] Moderna COVID-19 Vaccine Moderna COVID-19 Vaccine 2021-04-13 09:22:00 Completed [facility] Moderna COVID-19 Vaccine Moderna COVID-19 Vaccine 2021-04-13 09:22:00 Completed [facility] Moderna COVID-19 Vaccine Moderna COVID-19 Vaccine 2021-04-13 09:22:00 Completed [facility] Moderna COVID-19 Vaccine Moderna COVID-19 Vaccine 2021-04-13 09:22:00 Completed [facility] Moderna COVID-19 Vaccine Moderna COVID-19 Vaccine 2021-04-13 09:22:00 [facility] Moderna COVID-19 Vaccine Moderna COVID-19 Vaccine 2021-04-13 09:22:00 Completed [facility] Moderna COVID-19 Vaccine Moderna COVID-19 Vaccine 2021-04-13 09:22:00 [facility] Moderna COVID-19 Vaccine Moderna COVID-19 Vaccine 2021-04-13 09:22:00 Completed [facility] Moderna COVID-19 Vaccine Moderna COVID-19 Vaccine 2021-04-13 09:22:00 Completed [facility] Moderna COVID-19 Vaccine Moderna COVID-19 Vaccine 2021-04-13 09:22:00 Completed [facility] Moderna COVID-19 Vaccine Moderna COVID-19 Vaccine 2021-04-13 09:22:00 Completed [facility] Moderna COVID-19 Vaccine Moderna COVID-19 Vaccine 2021-04-13 09:22:00 Completed [facility] Moderna COVID-19 Vaccine Moderna COVID-19 Vaccine 2021-04-13 09:22:00 Completed [facility] Moderna COVID-19 Vaccine Moderna COVID-19 Vaccine 2021-04-13 09:22:00 Completed [facility] Moderna COVID-19 Vaccine Moderna COVID-19 Vaccine 2021-04-13 09:22:00 Completed [facility] Moderna COVID-19 Vaccine Moderna COVID-19 Vaccine 2021-04-13 09:22:00 Completed [facility] Moderna COVID-19 Vaccine Moderna COVID-19 Vaccine 2021-04-13 09:22:00 Completed [facility] Moderna COVID-19 Vaccine Moderna COVID-19 Vaccine 2021-04-13 09:22:00 Completed [facility] Moderna COVID-19 Vaccine Moderna COVID-19 Vaccine 2021-04-13 09:22:00 Completed [facility] Moderna COVID-19 Vaccine Moderna COVID-19 Vaccine 2021-04-13 09:22:00 Completed [facility] Moderna COVID-19 Vaccine Moderna COVID-19 Vaccine 2021-04-13 09:22:00 Completed [facility] Moderna COVID-19 Vaccine Moderna COVID-19 Vaccine 2021-04-13 09:22:00 Completed [facility] Moderna COVID-19 Vaccine Moderna COVID-19 Vaccine 2021-04-13 09:22:00 Completed [facility] Moderna COVID-19 Vaccine Moderna COVID-19 Vaccine 2021-04-13 09:22:00 Completed [facility] Moderna COVID-19 Vaccine Moderna COVID-19 Vaccine 2020-08-01 15:06:00 Completed [facility] Moderna COVID-19 Vaccine Moderna COVID-19 Vaccine 2020-08-01 15:06:00 Completed [facility] Moderna COVID-19 Vaccine Moderna COVID-19 Vaccine 2020-08-01 15:06:00 Completed [facility] Moderna COVID-19 Vaccine Moderna COVID-19 Vaccine 2020-08-01 15:06:00 Completed [facility] Moderna COVID-19 Vaccine Moderna COVID-19 Vaccine 2020-08-01 15:06:00 Completed [facility] Moderna COVID-19 Vaccine Moderna COVID-19 Vaccine 2020-08-01 15:06:00 Completed [facility] Moderna COVID-19 Vaccine Moderna COVID-19 Vaccine 2020-08-01 15:06:00 Completed [facility] Moderna COVID-19 Vaccine Moderna COVID-19 Vaccine 2020-08-01 15:06:00 Completed [facility] Moderna COVID-19 Vaccine Moderna COVID-19 Vaccine 2020-08-01 15:06:00 Completed [facility] Moderna COVID-19 Vaccine Moderna COVID-19 Vaccine 2020-08-01 15:06:00 Completed [facility] Moderna COVID-19 Vaccine Moderna COVID-19 Vaccine 2020-08-01 15:06:00 Completed [facility] Moderna COVID-19 Vaccine Moderna COVID-19 Vaccine 2020-08-01 15:06:00 Completed [facility] Moderna COVID-19 Vaccine Moderna COVID-19 Vaccine 2020-08-01 15:06:00 Completed [facility] Moderna COVID-19 Vaccine Moderna COVID-19 Vaccine 2020-07-04 15:05:00 Completed [facility] Moderna COVID-19 Vaccine Moderna COVID-19 Vaccine 2020-07-04 15:05:00 Completed [facility] Moderna COVID-19 Vaccine Moderna COVID-19 Vaccine 2020-07-04 15:05:00 Completed [facility] Moderna COVID-19 Vaccine Moderna COVID-19 Vaccine 2020-07-04 15:05:00 Completed [facility] Moderna COVID-19 Vaccine Moderna COVID-19 Vaccine 2020-07-04 15:05:00 Completed [facility] Moderna COVID-19 Vaccine Moderna COVID-19 Vaccine 2020-07-04 15:05:00 Completed [facility] Moderna COVID-19 Vaccine Moderna COVID-19 Vaccine 2020-07-04 15:05:00 Completed [facility] Moderna COVID-19 Vaccine Moderna COVID-19 Vaccine 2020-07-04 15:05:00 Completed [facility] Moderna COVID-19 Vaccine Moderna COVID-19 Vaccine 2020-07-04 15:05:00 Completed [facility] Moderna COVID-19 Vaccine Moderna COVID-19 Vaccine 2020-07-04 15:05:00 Completed [facility] Moderna COVID-19 Vaccine Moderna COVID-19 Vaccine 2020-07-04 15:05:00 Completed [facility] Moderna COVID-19 Vaccine Moderna COVID-19 Vaccine 2020-07-04 15:05:00 Completed [facility] Moderna COVID-19 Vaccine Moderna COVID-19 Vaccine 2020-07-04 15:05:00 Completed [facility] Afluria single dose Afluria single dose 13:32:00 Completed [facility] Afluria single dose Afluria single dose 13:32:00 Completed [facility] Afluria single dose Afluria single dose 13:32:00 Completed [facility] Afluria single dose Afluria single dose 13:32:00 Completed [facility] Afluria single dose Afluria single dose 13:32:00 Completed [facility] Afluria single dose Afluria single dose 13:32:00 Completed [facility] Afluria single dose Afluria single dose 13:32:00 Completed [facility] Afluria single dose Afluria single dose 13:32:00 Completed [facility] Afluria single dose Afluria single dose 13:32:00 Completed [facility] Afluria single dose Afluria single dose 13:32:00 Completed [facility] Afluria single dose Afluria single dose 13:32:00 Completed [facility] Afluria single dose Afluria single dose 13:32:00 Completed [facility] Afluria single dose Afluria single dose 13:32:00 Completed [facility] Afluria single dose Afluria single dose 13:32:00 Completed [facility] Afluria single dose Afluria single dose 13:32:00 Completed [facility] Afluria single dose Afluria single dose 13:32:00 Completed [facility] Afluria single dose Afluria single dose 13:32:00 Completed [facility] Afluria single dose Afluria single dose 13:32:00 Completed [facility] Afluria single dose Afluria single dose 13:32:00 Completed [facility] Afluria single dose Afluria single dose 13:32:00 Completed [facility] Afluria single dose Afluria single dose 13:32:00 Completed [facility] Afluria single dose Afluria single dose 13:32:00 Completed [facility] Afluria single dose Afluria single dose 13:32:00 Completed [facility] Afluria single dose Afluria single dose 13:32:00 Completed [facility] Afluria single dose Afluria single dose 00:00:00 Completed [facility] influenza, injectable, quadrivalent influenza, injectable, quadrivalent 2019-03-02 00:00:00 Completed [facility] Prevnar 20 (PCV20) Prevnar 20 (PCV20) Unknown Completed [facility] Moderna COVID-19 Vaccine Moderna COVID-19 Vaccine Unknown Completed [facility] Afluria single dose Afluria single dose Unknown Completed [facility] Afluria Afluria Unknown Completed [facility] FLUZONE HIGH DOSE OVER 65 FLUZONE HIGH DOSE OVER 65 Unknown Completed [facility] Prevnar 20 (PCV20) Prevnar 20 (PCV20) Unknown Completed [facility] Moderna COVID-19 Vaccine Moderna COVID-19 Vaccine Unknown Completed [facility] Afluria single dose Afluria single dose Unknown Completed [facility] Afluria Afluria Unknown Completed [facility] FLUZONE HIGH DOSE OVER 65 FLUZONE HIGH DOSE OVER 65 Unknown Completed [facility] Prevnar 20 (PCV20) Prevnar 20 (PCV20) Unknown Completed [facility] Moderna COVID-19 Vaccine Moderna COVID-19 Vaccine Unknown Completed [facility] Afluria single dose Afluria single dose Unknown Completed [facility] Afluria Afluria Unknown Completed [facility] FLUZONE HIGH DOSE OVER 65 FLUZONE HIGH DOSE OVER 65 Unknown Completed [facility] Prevnar 20 (PCV20) Prevnar 20 (PCV20) Unknown Completed [facility] Moderna COVID-19 Vaccine Moderna COVID-19 Vaccine Unknown Completed [facility] Afluria single dose Afluria single dose Unknown Completed [facility] Afluria Afluria Unknown Completed [facility] FLUZONE HIGH DOSE OVER 65 FLUZONE HIGH DOSE OVER 65 Unknown Completed [facility] Prevnar 20 (PCV20) Prevnar 20 (PCV20) Unknown Completed [facility] Moderna COVID-19 Vaccine Moderna COVID-19 Vaccine Unknown Completed [facility] Afluria single dose Afluria single dose Unknown Completed [facility] Afluria Afluria Unknown Completed [facility] FLUZONE HIGH DOSE OVER 65 FLUZONE HIGH DOSE OVER 65 Unknown Completed [facility] Prevnar 20 (PCV20) Prevnar 20 (PCV20) Unknown Completed [facility] COVID-19 Vaccine Moderna COVID-19 Vaccine Unknown Completed [facility] Afluria single dose Afluria single dose Unknown Completed [facility] Afluria Afluria Unknown Completed [facility] FLUZONE HIGH DOSE OVER 65 FLUZONE HIGH DOSE OVER 65 Unknown Completed [facility] Prevnar 20 (PCV20) Prevnar 20 (PCV20) Unknown Completed [facility] Moderna COVID-19 Vaccine Moderna COVID-19 Vaccine Unknown Completed [facility] Afluria (IIV4) - 3 years and older - SDS - 0.5mL Afluria (IIV4) - 3 years and older - SDS - 0.5mL Unknown Completed [facility] Afluria Afluria Unknown Completed [facility] FLUZONE HIGH DOSE OVER 65 FLUZONE HIGH DOSE OVER 65 Unknown Completed [facility] Prevnar 20 (PCV20) Prevnar 20 (PCV20) Unknown Completed [facility] Moderna COVID-19 Vaccine Moderna COVID-19 Vaccine Unknown Completed [facility] Afluria (IIV4) - 3 years and older - SDS - 0.5mL Afluria (IIV4) - 3 years and older - SDS - 0.5mL Unknown Completed [facility] Afluria Afluria Unknown Completed [facility] FLUZONE HIGH DOSE OVER 65 FLUZONE HIGH DOSE OVER 65 Unknown Completed [facility] Prevnar 20 (PCV20) Prevnar 20 (PCV20) Unknown Completed [facility] Moderna COVID-19 Vaccine Moderna COVID-19 Vaccine Unknown Completed [facility] Afluria (IIV4) - 3 years and older - SDS - 0.5mL Afluria (IIV4) - 3 years and older - SDS - 0.5mL Unknown Completed [facility] Afluria Afluria Unknown Completed [facility] FLUZONE HIGH DOSE OVER 65 FLUZONE HIGH DOSE OVER 65 Unknown Completed [facility] Prevnar 20 (PCV20) Prevnar 20 (PCV20) Unknown Completed [facility] Moderna COVID-19 Vaccine Moderna COVID-19 Vaccine Unknown Completed [facility] Afluria (IIV4) - 3 years and older - SDS - 0.5mL Afluria (IIV4) - 3 years and older - SDS - 0.5mL Unknown Completed [facility] Afluria Afluria Unknown Completed [facility] FLUZONE HIGH DOSE OVER 65 FLUZONE HIGH DOSE OVER 65 Unknown Completed [facility] Prevnar 20 (PCV20) Prevnar 20 (PCV20) Unknown Completed [facility] Moderna COVID-19 Vaccine Moderna COVID-19 Vaccine Unknown Completed [facility] Afluria (IIV4) - 3 years and older - SDS - 0.5mL Afluria (IIV4) - 3 years and older - SDS - 0.5mL Unknown Completed [facility] Afluria Afluria Unknown Completed [facility] FLUZONE HIGH DOSE OVER 65 FLUZONE HIGH DOSE OVER 65 Unknown Completed [facility] Prevnar 20 (PCV20) Prevnar 20 (PCV20) Unknown Completed [facility] Moderna COVID-19 Vaccine Moderna COVID-19 Vaccine Unknown Completed [facility] Afluria (IIV4) - 3 years and older - SDS - 0.5mL Afluria (IIV4) - 3 years and older - SDS - 0.5mL Unknown Completed [facility] Afluria Afluria Unknown Completed [facility] FLUZONE HIGH DOSE OVER 65 FLUZONE HIGH DOSE OVER 65 Unknown Completed [facility] Prevnar 20 (PCV20) Prevnar 20 (PCV20) Unknown Completed [facility] Moderna COVID-19 Vaccine Moderna COVID-19 Vaccine Unknown Completed [facility] Afluria (IIV4) - 3 years and older - SDS - 0.5mL Afluria (IIV4) - 3 years and older - SDS - 0.5mL Unknown Completed [facility] Afluria Afluria Unknown Completed [facility] FLUZONE HIGH DOSE OVER 65 FLUZONE HIGH DOSE OVER 65 Unknown Completed [facility] Prevnar 20 (PCV20) Prevnar 20 (PCV20) Unknown Completed [facility] Moderna COVID-19 Vaccine Moderna COVID-19 Vaccine Unknown Completed [facility] Afluria (IIV4) - 3 years and older - SDS - 0.5mL Afluria (IIV4) - 3 years and older - SDS - 0.5mL Unknown Completed [facility] Afluria Afluria Unknown Completed [facility] FLUZONE HIGH DOSE OVER 65 FLUZONE HIGH DOSE OVER 65 Unknown Completed [facility] Prevnar 20 (PCV20) Prevnar 20 (PCV20) Unknown Completed [facility] Moderna COVID-19 Vaccine Moderna COVID-19 Vaccine Unknown Completed [facility] Afluria (IIV4) - 3 years and older - SDS - 0.5mL Afluria (IIV4) - 3 years and older - SDS - 0.5mL Unknown Completed [facility] Afluria Afluria Unknown Completed [facility] FLUZONE HIGH DOSE OVER 65 FLUZONE HIGH DOSE OVER 65 Unknown Completed [facility] Prevnar 20 (PCV20) Prevnar 20 (PCV20) Unknown Completed [facility] Moderna COVID-19 Vaccine Moderna COVID-19 Vaccine Unknown Completed [facility] Afluria (IIV4) - 3 years and older - SDS - 0.5mL Afluria (IIV4) - 3 years and older - SDS - 0.5mL Unknown Completed [facility] Afluria Afluria Unknown Completed [facility] FLUZONE HIGH DOSE OVER 65 FLUZONE HIGH DOSE OVER 65 Unknown Completed [facility] Prevnar 20 (PCV20) Prevnar 20 (PCV20) Unknown Completed [facility] Moderna COVID-19 Vaccine Moderna COVID-19 Vaccine Unknown Completed [facility] Afluria (IIV4) - 3 years and older - SDS - 0.5mL Afluria (IIV4) - 3 years and older - SDS - 0.5mL Unknown Completed [facility] Afluria Afluria Unknown Completed [facility] FLUZONE HIGH DOSE OVER 65 FLUZONE HIGH DOSE OVER 65 Unknown Completed [facility] Prevnar 20 (PCV20) Prevnar 20 (PCV20) Unknown Completed [facility] Moderna COVID-19 Vaccine Moderna COVID-19 Vaccine Unknown Completed [facility] Afluria (IIV4) - 3 years and older - SDS - 0.5mL Afluria (IIV4) - 3 years and older - SDS - 0.5mL Unknown Completed [facility] Afluria Afluria Unknown Completed [facility] FLUZONE HIGH DOSE OVER 65 FLUZONE HIGH DOSE OVER 65 Unknown Completed [facility] Prevnar 20 (PCV20) Prevnar 20 (PCV20) Unknown Completed [facility] Moderna COVID-19 Vaccine Moderna COVID-19 Vaccine Unknown Completed [facility] Afluria (IIV4) - 3 years and older - SDS - 0.5mL Afluria (IIV4) - 3 years and older - SDS - 0.5mL Unknown Completed [facility] Afluria Afluria Unknown Completed [facility] FLUZONE HIGH DOSE OVER 65 FLUZONE HIGH DOSE OVER 65 Unknown Completed [facility] Prevnar 20 (PCV20) Prevnar 20 (PCV20) Unknown Completed [facility] Moderna COVID-19 Vaccine Moderna COVID-19 Vaccine Unknown Completed [facility] Afluria (IIV4) - 3 years and older - SDS - 0.5mL Afluria (IIV4) - 3 years and older - SDS - 0.5mL Unknown Completed [facility] Afluria Afluria Unknown Completed [facility] FLUZONE HIGH DOSE OVER 65 FLUZONE HIGH DOSE OVER 65 Unknown Completed [facility] Prevnar 20 (PCV20) Prevnar 20 (PCV20) Unknown Completed [facility] Moderna COVID-19 Vaccine Moderna COVID-19 Vaccine Unknown Completed [facility] Afluria (IIV4) - 3 years and older - SDS - 0.5mL Afluria (IIV4) - 3 years and older - SDS - 0.5mL Unknown Completed [facility] Afluria Afluria Unknown Completed [facility] FLUZONE HIGH DOSE OVER 65 FLUZONE HIGH DOSE OVER 65 Unknown Completed [facility] Prevnar 20 (PCV20) Prevnar 20 (PCV20) Unknown Completed [facility] Moderna COVID-19 Vaccine Moderna COVID-19 Vaccine Unknown Completed [facility] Afluria (IIV4) - 3 years and older - SDS - 0.5mL Afluria (IIV4) - 3 years and older - SDS - 0.5mL Unknown Completed [facility] Afluria Afluria Unknown Completed [facility] FLUZONE HIGH DOSE OVER 65 FLUZONE HIGH DOSE OVER 65 Unknown Completed [facility] Prevnar 20 (PCV20) Prevnar 20 (PCV20) Unknown Completed [facility] Moderna COVID-19 Vaccine Moderna COVID-19 Vaccine Unknown Completed [facility] Afluria (IIV4) - 3 years and older - SDS - 0.5mL Afluria (IIV4) - 3 years and older - SDS - 0.5mL Unknown Completed [facility] Afluria Afluria Unknown Completed [facility] FLUZONE HIGH DOSE OVER 65 FLUZONE HIGH DOSE OVER 65 Unknown Completed [facility] Vital Signs Vital Name Observation Time Observation Value Comments S ource height 2024-08-25 07:40:00 66 [in_i] Commo n [facility] weight 2024-08-25 07:40:00 310 [lb_av] Comm on [facility] 2024-08-25 07:40:00 50.03 kg/m2 Comm on [facility] height 2024-07-28 07:50:00 66 [in_i] Commo n [facility] weight 2024-07-28 07:50:00 310 [lb_av] Comm on [facility] bmi 2024-07-28 07:50:00 50.03 kg/m2 Comm on [facility] height 2024-06-30 08:20:00 66 [in_i] Commo n [facility] weight 2024-06-30 08:20:00 325.2 [lb_av] Co mmon [facility] temperature 2024-06-30 08:20:00 97 [degF] Comm on [facility] bmi 2024-06-30 08:20:00 52.48 kg/m2 Comm on [facility] oximetry 2024-06-30 08:20:00 95 % Commo n [facility] respiratory rate 2024-06-30 08:20:00 16 /min Common [facility] blood pressure systolic 2024-06-30 08:20:00 126 mm[Hg] [facility] blood pressure diastolic 2024-06-30 08:20:00 76 mm[Hg] Common [facility] height 2024-06-30 08:20:00 66 [in_i] Commo n [facility] weight 2024-06-30 08:20:00 325.2 [lb_av] Co mmon [facility] temperature 2024-06-30 08:20:00 97 [degF] Comm on [facility] bmi 2024-06-30 08:20:00 52.48 kg/m2 Comm on [facility] oximetry 2024-06-30 08:20:00 95 % Commo n [facility] respiratory rate 2024-06-30 08:20:00 16 /min [facility] blood pressure systolic 2024-06-30 08:20:00 126 mm[Hg] Common [facility] blood pressure diastolic 2024-06-30 08:20:00 76 mm[Hg] [facility] height 2024-03-25 09:00:00 66 [in_i] Commo n [facility] weight 2024-03-25 09:00:00 333 [lb_av] Comm on [facility] temperature 2024-03-25 09:00:00 96 [degF] Comm on [facility] bmi 2024-03-25 09:00:00 53.74 kg/m2 Comm on [facility] oximetry 2024-03-25 09:00:00 97 % Commo n [facility] respiratory rate 2024-03-25 09:00:00 16 /min [facility] blood pressure systolic 2024-03-25 09:00:00 134 mm[Hg] [facility] blood pressure diastolic 2024-03-25 09:00:00 76 mm[Hg] [facility] height 2024-01-26 14:00:00 66 [in_i] Commo n [facility] weight 2024-01-26 14:00:00 339 [lb_av] Comm on [facility] temperature 2024-01-26 14:00:00 97.4 [degF] Com mon [facility] bmi 2024-01-26 14:00:00 54.71 kg/m2 Comm on [facility] blood pressure systolic 2024-01-26 14:00:00 132 mm[Hg] [facility] blood pressure diastolic 2024-01-26 14:00:00 76 mm[Hg] Common [facility] height 2023-12-23 09:00:00 66 [in_i] Commo n [facility] weight 2023-12-23 09:00:00 339 [lb_av] Comm on [facility] temperature 2023-12-23 09:00:00 97.4 [degF] Com mon [facility] bmi 2023-12-23 09:00:00 54.71 kg/m2 Comm on [facility] oximetry 2023-12-23 09:00:00 94 % Commo n [facility] respiratory rate 2023-12-23 09:00:00 16 /min [facility] blood pressure systolic 2023-12-23 09:00:00 132 mm[Hg] [facility] blood pressure diastolic 2023-12-23 09:00:00 76 mm[Hg] [facility] height 2023-09-22 11:00:00 66 [in_i] Commo n [facility] weight 2023-09-22 11:00:00 347 [lb_av] Comm on [facility] temperature 2023-09-22 11:00:00 97.4 [degF] Com mon [facility] bmi 2023-09-22 11:00:00 56 kg/m2 Commo n [facility] oximetry 2023-09-22 11:00:00 96 % Commo n [facility] respiratory rate 2023-09-22 11:00:00 16 /min Common [facility] blood pressure systolic 2023-09-22 11:00:00 130 mm[Hg] [facility] blood pressure diastolic 2023-09-22 11:00:00 78 mm[Hg] [facility] height 2023-07-07 09:00:00 66 [in_i] Commo n [facility] weight 2023-07-07 09:00:00 345 [lb_av] Comm on [facility] bmi 2023-07-07 09:00:00 55.68 kg/m2 Comm on [facility] blood pressure systolic 2023-07-07 09:00:00 126 mm[Hg] [facility] blood pressure diastolic 2023-07-07 09:00:00 79 mm[Hg] [facility] height 2023-06-30 10:45:00 66 [in_i] Commo n [facility] weight 2023-06-30 10:45:00 345 [lb_av] Comm on [facility] temperature 2023-06-30 10:45:00 98.0 [degF] Com mon [facility] bmi 2023-06-30 10:45:00 55.68 kg/m2 Comm on [facility] blood pressure systolic 2023-06-30 10:45:00 130 mm[Hg] Common [facility] blood pressure diastolic 2023-06-30 10:45:00 72 mm[Hg] [facility] height 2023-06-23 10:00:00 66 [in_i] Commo n [facility] weight 2023-06-23 10:00:00 345 [lb_av] Comm on [facility] temperature 2023-06-23 10:00:00 97.0 [degF] Com mon [facility] bmi 2023-06-23 10:00:00 55.68 kg/m2 Comm on [facility] oximetry 2023-06-23 10:00:00 96 % Commo n [facility] respiratory rate 2023-06-23 10:00:00 16 /min Common [facility] blood pressure systolic 2023-06-23 10:00:00 132 mm[Hg] Common [facility] blood pressure diastolic 2023-06-23 10:00:00 74 mm[Hg] Common [facility] height 2023-06-23 10:20:00 66 [in_i] Commo n [facility] weight 2023-06-23 10:20:00 345 [lb_av] Comm on [facility] temperature 2023-06-23 10:20:00 97.0 [degF] Com [facility] bmi 2023-06-23 10:20:00 55.68 kg/m2 Comm on [facility] oximetry 2023-06-23 10:20:00 96 % Commo n [facility] respiratory rate 2023-06-23 10:20:00 16 /min Common [facility] blood pressure systolic 2023-06-23 10:20:00 132 mm[Hg] Common [facility] blood pressure diastolic 2023-06-23 10:20:00 74 mm[Hg] [facility] height 2023-06-23 08:15:00 66 [in_i] Commo n [facility] weight 2023-06-23 08:15:00 352 [lb_av] Comm on [facility] temperature 2023-06-23 08:15:00 98.4 [degF] Com [facility] bmi 2023-06-23 08:15:00 56.81 kg/m2 Comm on [facility] blood pressure systolic 2023-06-23 08:15:00 132 mm[Hg] Common [facility] blood pressure diastolic 2023-06-23 08:15:00 86 mm[Hg] [facility] height 2023-06-03 15:30:00 66 [in_i] Commo n [facility] weight 2023-06-03 15:30:00 352.6 [lb_av] Co mmon [facility] temperature 2023-06-03 15:30:00 98.0 [degF] Com [facility] bmi 2023-06-03 15:30:00 56.9 kg/m2 Commo n [facility] blood pressure systolic 2023-06-03 15:30:00 134 mm[Hg] [facility] blood pressure diastolic 2023-06-03 15:30:00 88 mm[Hg] [facility] height 2023-03-12 09:40:00 66 [in_i] Commo n [facility] weight 2023-03-12 09:40:00 345.8 [lb_av] Co mmon [facility] temperature 2023-03-12 09:40:00 97.2 [degF] Com [facility] bmi 2023-03-12 09:40:00 55.81 kg/m2 Comm on [facility] oximetry 2023-03-12 09:40:00 97 % Commo n [facility] respiratory rate 2023-03-12 09:40:00 17 /min Common [facility] blood pressure systolic 2023-03-12 09:40:00 132 mm[Hg] Common [facility] blood pressure diastolic 2023-03-12 09:40:00 88 mm[Hg] Common [facility] height 2022-12-18 09:00:00 66 [in_i] Commo n [facility] weight 2022-12-18 09:00:00 339.8 [lb_av] Co mmon [facility] temperature 2022-12-18 09:00:00 97.6 [degF] Com mon [facility] bmi 2022-12-18 09:00:00 54.84 kg/m2 Comm on [facility] oximetry 2022-12-18 09:00:00 91 % Commo n [facility] respiratory rate 2022-12-18 09:00:00 16 /min [facility] blood pressure systolic 2022-12-18 09:00:00 126 mm[Hg] Common [facility] blood pressure diastolic 2022-12-18 09:00:00 88 mm[Hg] Common [facility] height 2022-07-31 08:20:00 66 [in_i] Commo n [facility] weight 2022-07-31 08:20:00 329 [lb_av] Comm on [facility] temperature 2022-07-31 08:20:00 97.4 [degF] Com mon [facility] bmi 2022-07-31 08:20:00 53.1 kg/m2 Commo n [facility] oximetry 2022-07-31 08:20:00 95 % Commo n [facility] respiratory rate 2022-07-31 08:20:00 17 /min Common [facility] blood pressure systolic 2022-07-31 08:20:00 124 mm[Hg] [facility] blood pressure diastolic 2022-07-31 08:20:00 70 mm[Hg] Common [facility] height 2022-07-08 16:00:00 66 [in_i] Commo n [facility] weight 2022-07-08 16:00:00 295 [lb_av] Comm on [facility] temperature 2022-07-08 16:00:00 97.5 [degF] Com mon [facility] bmi 2022-07-08 16:00:00 47.61 kg/m2 Comm on [facility] height 2022-01-22 17:00:00 66 [in_i] Commo n [facility] weight 2022-01-22 17:00:00 305 [lb_av] Comm on [facility] temperature 2022-01-22 17:00:00 96.4 [degF] Com mon [facility] bmi 2022-01-22 17:00:00 49.22 kg/m2 Comm on [facility] height 2021-10-17 10:00:00 66 [in_i] Commo n [facility] weight 2021-10-17 10:00:00 305 [lb_av] Comm on [facility] temperature 2021-10-17 10:00:00 96.7 [degF] Com [facility] bmi 2021-10-17 10:00:00 49.22 kg/m2 Comm on [facility] height 2021-10-17 09:20:00 66 [in_i] Commo n [facility] weight 2021-10-17 09:20:00 305 [lb_av] Comm on [facility] temperature 2021-10-17 09:20:00 96.7 [degF] Com [facility] bmi 2021-10-17 09:20:00 49.22 kg/m2 Comm on [facility] height 2021-08-06 08:30:00 66 [in_i] Commo n [facility] weight 2021-08-06 08:30:00 335 [lb_av] Comm on [facility] temperature 2021-08-06 08:30:00 97.9 [degF] Com [facility] bmi 2021-08-06 08:30:00 54.06 kg/m2 Comm on [facility] blood pressure systolic 2021-08-06 08:30:00 128 mm[Hg] Common [facility] blood pressure diastolic 2021-08-06 08:30:00 86 mm[Hg] Common [facility] height 2021-07-18 11:20:00 66 [in_i] Commo n [facility] weight 2021-07-18 11:20:00 310 [lb_av] Comm on [facility] bmi 2021-07-18 11:20:00 50.03 kg/m2 Comm on [facility] height 2021-04-18 09:00:00 66 [in_i] Commo n [facility] weight 2021-04-18 09:00:00 310 [lb_av] Comm on [facility] temperature 2021-04-18 09:00:00 97 [degF] Comm on [facility] bmi 2021-04-18 09:00:00 50.03 kg/m2 Comm on [facility] BP Diastolic 2019-08-30 00:00:00 80 mm[Hg] [facility] Height 2019-08-30 00:00:00 66 [in_i] [facility] BMI (Body Mass Index) 2019-08-30 00:00:00 49.4 kg/m2 [facility] BP Systolic 2019-08-30 00:00:00 117 mm[Hg] [facility] Body Weight 2019-08-30 00:00:00 306 [lb_av] [facility] Respiratory Rate 2024-08-18 09:16:00 Giovani Egan BP Systolic 2024-08-18 09:16:00 96 mm[Hg] Jones Egan BP Diastolic 2024-08-18 09:16:00 63 mm[Hg] Derek Egan Weight Measured 2024-08-18 09:16:00 311.00 pounds Giovani Egan Height Measured 2024-08-18 09:16:00 65.00 inches Giovani Egan Body Temperature 2024-08-18 09:16:00 97.30 degrees Giovani Egan Heart Rate 2024-08-18 09:16:00 93.00 /min Alexus Egan Encounters Start Date/Time End Date/Time Encounter Type Admission Type Attending [facility] Care Department Encounter ID Source 2024-04-15 10:48:00 Outpatient FallFelicia lobato [facility] [id number] [facility] 2024-03-25 11:18:00 Outpatient FallFelicia [facility]C ST[facility] [id number] [facility] 2024-01-27 15:22:00 Outpatient FallCheryli STLMLC STLMLC [id number] [facility] 2023-11-27 15:46:00 Outpatient FallCheryli STLMLC STLMLC [id number] [facility] 2023-09-29 11:15:00 Outpatient FallFelicia lobato STLMLC STLMLC [id number] [facility] 2023-09-19 13:35:00 Outpatient FallCheryli STLMLC STLMLC [id number] [facility] 2023-09-18 13:43:00 Outpatient FallCheryl lobatoi STLMLC STLMLC [id number] [facility] 2023-09-11 14:36:00 Outpatient FallFelicia STLMLC STLMLC [id number] [facility] 2023-06-30 13:30:00 Outpatient FallCheryli STLMLC STLMLC [id number] [facility] 2023-06-24 10:57:00 Outpatient FallCheryli STLMLC STLMLC [id number] [facility] 2023-06-23 08:19:00 Outpatient FallCheryli STLMLC STLMLC [id number] [facility] 2023-06-20 12:42:01 Outpatient FallFelicia STLMLC STLMLC [id number] [facility] 2023-06-19 09:55:00 Outpatient FallFelicia STLMLC STLMLC [id number] [facility] 2023-06-03 16:06:00 Outpatient FallFelicia STLMLC STLMLC [id number] [facility] 2023-05-08 11:11:00 Outpatient FallFelicia STLMLC STLMLC [id number] [facility] 2022-12-16 08:16:00 Outpatient FallFelicia STLMLC STLMLC [id number] [facility] 2022-11-27 11:55:00 Outpatient FallFelicia STLMLC STLMLC [id number] [facility] 2022-09-23 13:08:00 Outpatient FallFelicia STLMLC STLMLC [id number] [facility] 2022-07-31 08:46:00 Outpatient FallFelicia lobato STLMLC STLMLC [id number] [facility] 2022-07-05 12:47:00 Outpatient FallFelicia lobato STLMLC STLMLC [id number] [facility] 2022-07-04 11:27:01 Outpatient TrishaShilpi godfrey STLMLC STLMLC [id number] [facility] 2022-05-15 15:46:00 Outpatient Renee Figueroa STLMLC STLMLC [id number] [facility] 2022-01-18 09:54:00 Outpatient Renee Figueroa STLMLC STLMLC [id number] [facility] 2021-12-14 10:49:00 Outpatient Figueroa, Na STLMLC STLMLC [id number] [facility] 2021-12-12 14:47:00 Outpatient Figueroa, Na STLMLC STLMLC [id number] [facility] 2021-11-15 11:42:00 Outpatient Figueroa, Na STLMLC STLMLC [id number] [facility] 2021-07-24 16:05:01 Outpatient Figueroa, Na STLMLC STLMLC [id number] [facility] 2021-07-16 10:37:00 Outpatient Figueroa, Na STLMLC STLMLC [id number] [facility] 2021-06-27 14:26:17 Outpatient Figueroa, Na STLMLC STLMLC [id number] [facility] 2021-06-27 14:20:43 Outpatient Figueroa, Na STLMLC STLMLC [id number] [facility] 2021-06-27 14:12:26 Outpatient Figueroa, Na STLMLC STLMLC [id number] [facility] 2021-06-27 14:12:03 Outpatient Figueroa, Na STLMLC STLMLC [id number] [facility] 2021-06-27 14:06:49 Outpatient Figueroa, Na STLMLC STLMLC [id number] [facility] 2021-06-27 14:01:09 Outpatient Figueroa, Na STLMLC STLMLC [id number] [facility] 2021-06-27 13:51:05 Outpatient Figueroa, Na STLMLC STLMLC [id number] [facility] 2021-06-27 13:45:16 Outpatient Figueroa, Na STLMLC STLMLC [id number] [facility] 2021-06-27 13:32:06 Outpatient Figueroa, Na STLMLC STLMLC [id number] [facility] 2021-06-27 13:02:03 Outpatient Renee Figueroa STLMLC STLMLC [id number] [facility] 2021-06-27 12:25:27 Outpatient Renee Figueroa STLMLC STLMLC [id number] [facility] 2021-06-27 11:59:05 Outpatient Renee Figueroa STLMLC STLMLC [id number] [facility] 2021-06-27 11:55:19 Outpatient Renee Figueroa STLMLC STLMLC [id number] [facility] 2021-06-27 11:45:57 Outpatient Renee Figueroa STLMLC STLMLC [id number] [facility] 2021-06-27 11:44:40 Outpatient Renee Figueroa STLMLC STLMLC [id number] [facility] 2021-06-27 11:33:05 Outpatient Renee Figueroa STLMLC STLMLC [id number] [facility] 2021-06-27 11:26:51 Outpatient Renee Figueroa STLMLC STLMLC [id number] [facility] 2021-06-27 11:21:05 Outpatient Renee Figueroa STLMLC STLMLC [id number] [facility] 2021-06-27 11:09:27 Outpatient Renee Figueroa STLMLC STLMLC [id number] [facility] 2024-08-25 00:00:00 2024-08-25 00:00:00 OFFICE VISIT ESTAB PT LEVEL 4 STLMLC STLMLC [id number] [facility] 2024-08-18 09:03:03 2024-08-18 09:03:03 Outpatient DEANGELO BRIGHT [id number] Giovani Egan 2024-08-18 00:00:00 2024-08-18 00:00:00 Outpatient Visit SFA SFA [id number] Giovani Egan 2024-07-28 00:00:00 2024-07-28 00:00:00 OFFICE VISIT ESTAB PT LEVEL 4 STLMLC STLMLC [id number] [facility] 2024-07-26 00:00:00 2024-07-26 00:00:00 (TEL) STLMLC STLMLC [id number] [facility] 2024-06-30 00:00:00 2024-06-30 00:00:[address] [facility] WELLNESS VISIT STLMLC STLMLC [id number] [facility] 2024-06-30 00:00:00 2024-06-30 00:00:00 OFFICE VISIT ESTAB PT LEVEL 4 STLMLC STLMLC [id number] [facility] 2024-04-16 00:00:00 2024-04-16 00:00:00 (TEL) STLMLC STLMLC [id number] [facility] 2024-04-02 00:00:00 2024-04-02 00:00:00 (TEL) STLMLC STLMLC [id number] [facility] 2024-03-31 09:46:21 2024-03-31 11:02:45 Outpatient Elective MHEOUT MHEOUT [id number] [facility] 2024-03-31 09:46:13 2024-03-31 11:02:36 Outpatient Elective MHEOUT MHEOUT [id number] [facility] 2024-03-25 00:00:00 2024-03-25 00:00:00 OFFICE VISIT ESTAB PT LEVEL 4 STLMLC STLMLC [id number] [facility] 2024-03-25 00:00:00 2024-03-25 00:00:00 (TEL) STLMLC STLMLC [id number] [facility] 2024-02-25 00:00:00 2024-02-25 00:00:00 (TEL) STLMLC STLMLC [id number] [facility] 2024-02-06 00:00:00 2024-02-06 00:00:00 (TEL) STLMLC STLMLC [id number] [facility] 2024-01-26 00:00:00 2024-01-26 00:00:00 OFFICE VISIT ESTAB PT LEVEL 4 STLMLC STLMLC [id number] [facility] 2024-01-21 00:00:00 2024-01-21 00:00:00 (TEL) STLMLC STLMLC [id number] [facility] 2023-12-23 00:00:00 2023-12-23 00:00:00 OFFICE VISIT ESTAB PT LEVEL 4 STLMLC STLMLC [id number] [facility] 2023-11-28 00:00:00 2023-11-28 00:00:00 (TEL) STLMLC STLMLC [id number] [facility] 2023-11-27 00:00:00 2023-11-27 00:00:00 (TEL) STLMLC STLMLC [id number] [facility] 2023-09-30 00:00:00 2023-09-30 00:00:00 (TEL) STLMLC STLMLC [id number] [facility] 2023-09-22 00:00:00 2023-09-22 00:00:00 OFFICE VISIT ESTAB PT LEVEL 4 STLMLC STLMLC [id number] [facility] 2023-07-07 00:00:00 2023-07-07 00:00:00 (IN/ASP) INJ ASP STLMLC STLMLC [id number] [facility] 2023-06-30 00:00:00 2023-06-30 00:00:00 (IN/ASP) INJ ASP STLMLC STLMLC [id number] [facility] 2023-06-23 00:00:00 2023-06-23 00:00:00 OFFICE VISIT ESTAB PT LEVEL 4 STLMLC STLMLC [id number] [facility] 2023-06-23 00:00:00 2023-06-23 00:00:00 SUB ANNUAL MCR WELLNESS VISIT STLMLC STLMLC [id number] [facility] 2023-06-23 00:00:00 2023-06-23 00:00:00 (IN/ASP) INJ ASP STLMLC STLMLC [id number] [facility] 2023-06-18 00:00:00 2023-06-18 00:00:00 (TEL) STLMLC STLMLC [id number] [facility] 2023-06-03 00:00:00 2023-06-03 00:00:00 (TEL) STLMLC STLMLC [id number] [facility] 2023-06-03 00:00:00 2023-06-03 00:00:00 OFFICE VISIT ESTAB PT LEVEL 4 STLMLC STLMLC [id number] [facility] 2023-06-03 00:00:00 2023-06-03 00:00:00 (TEL) STLMLC STLMLC [id number] [facility] 2023-05-13 00:00:00 2023-05-13 00:00:00 (TEL) STLMLC STLMLC [id number] [facility] 2023-05-09 00:00:00 2023-05-09 00:00:00 (TEL) STLMLC STLMLC [id number] [facility] 2023-05-08 00:00:00 2023-05-08 00:00:00 (TEL) STLMLC STLMLC [id number] [facility] 2023-03-12 00:00:00 2023-03-12 00:00:00 OFFICE VISIT ESTAB PT LEVEL 4 STLMLC STLMLC [id number] [facility] 2023-02-20 00:00:00 2023-02-20 00:00:00 (TEL) STLMLC STLMLC [id number] [facility] 2022-12-18 00:00:00 2022-12-18 00:00:00 OFFICE VISIT ESTAB PT LEVEL 4 STLMLC STLMLC [id number] [facility] 2022-12-10 00:00:00 2022-12-10 00:00:00 (TEL) STLMLC STLMLC [id number] [facility] 2022-12-06 00:00:00 2022-12-06 00:00:00 (TEL) STLMLC STLMLC [id number] [facility] 2022-11-27 00:00:00 2022-11-27 00:00:00 (TEL) STLMLC STLMLC [id number] [facility] 2022-07-31 00:00:00 2022-07-31 00:00:00 OFFICE VISIT ESTAB PT LEVEL 4 STLMLC STLMLC [id number] [facility] 2022-07-16 00:00:00 2022-07-16 00:00:00 (TEL) STLMLC STLMLC [id number] [facility] 2022-07-08 00:00:00 2022-07-08 00:00:00 OFFICE VISIT ESTAB PT LEVEL 3 STLMLC STLMLC [id number] [facility] 2022-07-08 00:00:00 2022-07-08 00:00:00 (TEL) STLMLC STLMLC [id number] [facility] 2022-06-06 00:00:00 2022-06-06 00:00:00 (TEL) STLMLC STLMLC [id number] [facility] 2022-05-15 00:00:00 2022-05-15 00:00:00 (TEL) STLMLC STLMLC [id number] [facility] 2022-05-15 00:00:00 2022-05-15 00:00:00 (WEB) STLMLC STLMLC [id number] [facility] 2022-04-30 00:00:00 2022-04-30 00:00:00 (TEL) STLMLC STLMLC [id number] [facility] 2022-04-25 00:00:00 2022-04-25 00:00:00 (TEL) STLMLC STLMLC [id number] [facility] 2022-04-23 00:00:00 2022-04-23 00:00:00 (TEL) STLMLC STLMLC [id number] [facility] 2022-04-23 00:00:00 2022-04-23 00:00:00 OFFICE VISIT EST PT LEVEL 3 STLMLC STLMLC [id number] [facility] 2022-04-16 00:00:00 2022-04-16 00:00:00 (TEL) STLMLC STLMLC [id number] [facility] 2022-03-21 00:00:00 2022-03-21 00:00:00 (TEL) STLMLC STLMLC [id number] [facility] 2022-03-14 00:00:00 2022-03-14 00:00:00 (INJ) Injection STLMLC STLMLC [id number] [facility] 2022-03-01 00:00:00 2022-03-01 00:00:00 (TEL) STLMLC STLMLC [id number] [facility] 2022-02-27 00:00:00 2022-02-27 00:00:00 (TEL) STLMLC STLMLC [id number] [facility] 2022-02-18 00:00:00 2022-02-18 00:00:00 (TEL) STLMLC STLMLC [id number] [facility] 2022-02-14 00:00:00 2022-02-14 00:00:00 (TEL) STLMLC STLMLC [id number] [facility] 2022-01-22 00:00:00 2022-01-22 00:00:00 OFFICE VISIT ESTAB PT LEVEL 4 STLMLC STLMLC [id number] [facility] 2021-12-12 00:00:00 2021-12-12 00:00:00 (TEL) STLMLC STLMLC [id number] [facility] 2021-11-20 00:00:00 2021-11-20 00:00:00 (INJ) Injection STLMLC STLMLC [id number] [facility] 2021-11-15 00:00:00 2021-11-15 00:00:00 (TEL) STLMLC STLMLC [id number] [facility] 2021-10-17 00:00:00 2021-10-17 00:00:00 (TEL) STLMLC STLMLC [id number] [facility] 2021-10-17 00:00:00 2021-10-17 00:00:[address] [facility] WELLNESS VISIT STLMLC STLMLC [id number] [facility] 2021-10-17 00:00:00 2021-10-17 00:00:00 OFFICE VISIT ESTAB PT LEVEL 4 STLMLC STLMLC [id number] [facility] 2021-09-26 00:00:00 2021-09-26 00:00:00 (TEL) STLMLC STLMLC [id number] [facility] 2021-08-16 00:00:00 2021-08-16 00:00:00 (TEL) STLMLC STLMLC [id number] [facility] 2021-08-06 00:00:00 2021-08-06 00:00:00 OFFICE VISIT ESTAB PT LEVEL 4 STLMLC STLMLC [id number] [facility] 2021-07-27 00:00:00 2021-07-27 00:00:00 (TEL) STLMLC STLMLC [id number] [facility] 2021-07-18 00:00:00 2021-07-18 00:00:00 OFFICE VISIT ESTAB PT LEVEL 4 STLMLC STLMLC [id number] [facility] 2021-04-24 00:00:2021-04-24 00:00:00 (INJ) Injection STLMLC STLMLC [id number] [facility] 2021-04-18 00:00:00 2021-04-18 00:00:00 (TEL) STLMLC STLMLC [id number] [facility] 2021-04-18 00:00:00 2021-04-18 00:00:00 (TEL) STLMLC STLMLC [id number] [facility] 2021-04-18 00:00:00 2021-04-18 00:00:00 OFFICE VISIT ESTAB PT LEVEL 4 STLMLC STLMLC [id number] [facility] 2021-04-13 00:00:00 2021-04-13 00:00:00 (COVID Inj) COVID Injection STLMLC STLMLC [id number] [facility] 2021-04-09 00:00:00 2021-04-09 00:00:00 (TEL) STLMLC STLMLC [id number] [facility] 2021-04-09 00:00:00 2021-04-09 00:00:00 (TEL) STLMLC STLMLC [id number] [facility] 2021-04-02 00:00:00 2021-04-02 00:00:00 (TEL) STLMLC STLMLC [id number] [facility] 2021-02-22 00:00:00 2021-02-22 00:00:00 Outpatient STLMLC STLMLC [id number] [facility] 2021-02-01 00:00:00 2021-02-01 00:00:00 Outpatient STLMLC STLMLC [id number] [facility] 2021-01-17 00:00:00 2021-01-17 00:00:00 Outpatient STLMLC STLMLC [id number] [facility] 2020-12-28 00:00:00 2020-12-28 00:00:00 Outpatient STLMLC STLMLC [id number] [facility] 2020-12-17 11:01:00 2020-12-17 11:01:00 Outpatient DMG DMG [id number] [facility] 2020-10-11 00:00:00 2020-10-11 00:00:00 Outpatient STLMLC STLMLC [id number] [facility] 2020-09-19 00:00:00 2020-09-19 00:00:00 Outpatient STLMLC STLMLC [id number] [facility] 2020-09-18 00:00:00 2020-09-18 00:00:00 Outpatient STLMLC STLMLC [id number] [facility] 2020-08-29 00:00:00 2020-08-29 00:00:00 Outpatient STLMLC STLMLC [id number] [facility] 2020-07-25 00:00:00 2020-07-25 00:00:00 Outpatient STLMLC STLMLC [id number] [facility] 2020-06-26 00:00:00 2020-06-26 00:00:00 Outpatient STLMLC STLMLC [id number] [facility] 2020-03-29 00:00:00 2020-03-29 00:00:00 Outpatient STLMLC STLMLC [id number] [facility] 2020-03-17 00:00:00 2020-03-17 00:00:00 Outpatient STLMLC STLMLC [id number] [facility] 2020-03-16 00:00:00 2020-03-16 00:00:00 Outpatient STLMLC STLMLC [id number] [facility] 2020-02-17 00:00:00 2020-02-17 00:00:00 Outpatient STLMLC STLMLC [id number] [facility] 2020-02-11 15:11:00 2020-02-11 15:11:00 [facility] [id number] [facility] 2020-01-14 07:00:00 2020-01-14 07:00:00 Outpatient [place] _J_AH VFP VFP [id number] [facility] 2019-12-28 15:00:00 2019-12-28 15:00:[address] [facility] [id number] [facility] 2019-12-21 12:39:00 2019-12-21 12:39:00 Outpatient [place]ge[place] _J_AH VFP VFP [id number] [facility] 2019-12-13 04:42:00 2019-12-13 04:42:00 Outpatient Ige[place] _J_AH VFP VFP [id number] [facility] 2019-12-13 04:42:00 2019-12-13 04:42:00 Outpatient Ige[place] _J_AH VFP VFP [id number] [facility] 2019-12-06 09:10:00 2019-12-06 09:10:[address] [facility] [id number] [facility] 2019-11-23 15:19:00 2019-11-23 15:19:[address] [facility] Medicine [id number] [facility] 2019-11-17 13:21:00 2019-11-17 13:21:[address] [facility] [id number] [facility] 2019-11-17 12:20:00 2019-11-17 12:20:[address] [facility] [facility] [address] [facility] [id number] [facility] 2019-11-16 12:37:00 2019-11-16 12:37:00 Outpatient [place] _J_AH VFP VFP [id number] [facility] 2019-11-16 10:41:00 2019-11-16 10:41:[address] [facility] [id number] [facility] 2019-10-27 16:38:00 2019-10-27 16:38:00 Outpatient [facility] [id number] [facility] 2019-10-12 12:26:00 2019-10-12 12:26:00 Outpatient [place] _J_AH VFP VFP [id number] [facility] 2019-10-12 12:26:00 2019-10-12 12:26:00 Outpatient [place] _J_AH VFP VFP [id number] [facility] 2019-10-08 08:20:00 2019-10-08 08:20:00 Outpatient [facility] [id number] [facility] 2019-10-07 10:34:00 2019-10-07 10:34:00 Outpatient [place] _J_AH VFP VFP [id number] [facility] 2019-10-05 12:00:00 2019-10-05 12:00:00 Outpatient [place] _J_AH VFP VFP [id number] [facility] 2019-09-30 04:16:00 2019-09-30 04:16:00 Outpatient [place] _J_AH VFP VFP [id number] [facility] 2019-09-28 16:47:00 2019-09-28 16:47:00 Outpatient [facility] [id number] [facility] 2019-09-28 06:40:00 2019-09-28 06:40:00 Outpatient [place] _J_AH VFP VFP [id number] [facility] 2019-08-30 00:00:00 2019-08-30 00:00:00 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 VFP [place] - [facility] - VM_HOU_V@_ [employer] [id number] [facility] 2019-08-10 13:52:00 2019-08-10 13:52:[address] [facility] [address] [facility] [id number] [facility] 2019-08-05 15:16:00 2019-08-05 15:16:[address] [facility] [facility] [address] [facility] [id number] [facility] 2019-07-27 09:40:00 2019-07-27 09:40:[address] [facility] [facility] [address] [facility] [id number] [facility] 2019-07-21 07:17:00 2019-07-21 07:17:00 Outpatient [place] _J_AH VFP VFP [id number] [facility] 2019-07-09 14:18:00 2019-07-09 14:18:[address] [facility] [address] [facility] [id number] [facility] 2019-06-11 16:26:00 2019-06-11 16:26:[address] [facility] [facility] [address] [facility] [id number] [facility] 2019-04-26 08:00:00 2019-04-26 08:00:[address] [facility] [facility] [address] [facility] [id number] [facility] 2019-04-16 15:43:00 2019-04-16 15:43:[address] [facility] [facility] [address] [facility] [id number] [facility] 2019-04-07 10:20:00 2019-04-07 10:20:[address] [facility] [facility] [address] [facility] [id number] [facility] 2019-03-03 06:04:00 2019-03-03 06:04:[address] [facility] [facility] [address] [facility] [id number] [facility] 2019-02-05 16:00:00 2019-02-05 16:00:[address] [facility] [facility] [address] [facility] [id number] [facility] 2018-12-22 09:40:00 2018-12-22 09:40:[address] [facility] [facility] [address] [facility] [id number] [facility] 2018-07-27 08:30:00 2018-07-27 08:30:[address] [facility] [facility] [id number] [facility] 2018-07-13 16:18:00 2018-07-13 16:18:[address] [facility] [facility] [address] [facility] [id number] [facility] 2018-07-09 08:30:00 2018-07-09 08:30:[address] [facility] [facility] [address] [facility] [id number] [facility] 2018-06-15 11:46:00 2018-06-15 11:46:[address] [facility] [address] [facility] [id number] [facility] 2018-06-12 13:54:00 2018-06-12 13:54:[address] [facility] [facility] [address] [facility] [id number] [facility] 2018-06-03 11:25:00 2018-06-03 11:25:[address] [facility] [facility] [address] [facility] [id number] [facility] 2018-04-22 10:45:00 2018-04-22 10:45:[address] [facility] [facility] [address] [facility] [id number] [facility] 2017-11-03 15:16:00 2017-11-03 15:16:[address] [facility] [id number] [facility] Results Test Description Test Time Test Comments Results Result Co mments Source Microalbumin/Creat Ratio, Random [id number] 00:00:00* Test Item Value Reference Range Interpretation Comme nts Creatinine, Urine (test code = 2161-8) 124.5 mg/dL Not Estab. mg/dL Alb/Creat Ratio (test code = 59876-6) 217 mg/g creat See_Comment H [Automated [employer] [facility]] The system which generated this result transmitted reference range: 0-29 mg/g creat. The reference range was not used to interpret this result as normal/abnormal. Albumin, Urine (test code = 69338-3) 270.4 ug/mL Not Estab. ug/mL Lipid Panel With LDL/HDL [id number] 00:00:00* Test Item Value Reference Range Interpretation Comme nts Cholesterol, Total (test code = 3-3) 140 mg/dL See_Comment [Automated message] The system which generated this result transmitted reference range: 100-199 mg/dL. The reference range was not used to interpret this result as normal/abnormal. HDL Cholesterol (test code = 5-9) 61 mg/dL See_Comment [Automated [employer] [facility]] The system which generated this result transmitted reference range: >39 mg/dL. The reference range was not used to interpret this result as normal/abnormal. Triglycerides (test code = 2571-8) 81 mg/dL See_Comment [Automated [employer] [facility]] The system which generated this result transmitted reference range: 0-149 mg/dL. The reference range was not used to interpret this result as normal/abnormal. Microalbumin/Creat Ratio, Random [id number] 00:00:00* Test Item Value Reference Range Interpretation Comme nts Creatinine, Urine (test code = 2161-8) 99.5 mg/dL Not Estab. mg/dL Alb/Creat Ratio (test code = 22342-7) 217 mg/g creat See_Comment H [Automated [employer] Vector Systemsa ge] The system which generated this result transmitted reference range: 0-29 mg/g creat. The reference range was not used to interpret this result as normal/abnormal. Albumin, Urine (test code = 17135-6) 216.3 ug/mL Not Estab. ug/mL Lipid Panel w/ Chol/HDL [id number] 00:00:00* Test Item Value Reference Range Interpretation Comme nts Cholesterol, Total (test code = 3-3) 146 100-199 Triglycerides (test code = 2571-8) 89 0-149 HDL Cholesterol (test code = 5-9) 58 >39 T. Chol/HDL Ratio (test code = 9830-1) 2.5 0.0-4.4 Microalbumin/Creat Ratio, Random [id number] 00:00:00* Test Item Value Reference Range Interpretation Comme nts Creatinine, Urine (test code = 2161-8) 126.7 Not Esta b. Albumin, Urine (test code = 09012-0) 299.8 Not Estab. Alb/Creat Ratio (test code = 31006-1) 237 0-29 Notes Date/Time Note Provider Source Giovani Ríos [facility]
--- NOTE | 2024-10-02 13:07 | RAD REPORT ---
EXAMINATION: US Extrem Venous W Compress Momo CLINICAL INDICATION: [facility] MAIN Pain;Swelling Bed: Y TECHNIQUE: Complete bilateral duplex sonography of the BILATERAL lower extremity veins was performed. The examination included compression for vein patency, color Doppler imaging and flow augmentation in response to distal compression of the distal external iliac, common femoral, femoral, popliteal, t ibial, and great and small saphenous veins. COMPARISON: No prior exam. FINDINGS: Duplex sonography testing of the veins of the BILATERAL lower extremity was performed. Color flow monserrat ging shows all veins to be compressible with [id number] color filling. Pulsatile and phasic flow is present within all lower extremity deep and superficial veins examined. IMPRESSION: There is no deep vein or superficial vein thrombosis.
--- NOTE | 2024-10-02 14:04 | ER ---
Nurse's Notes [facility] Name: Latha Rai Age: 68 yrs Sex: Female : 1955 Arrival Date: 10/02/2024 Time: 11:38 Bed 17 Private MD: Diagnosis: Pain in left leg;Pain in right leg;Other chronic pain;Obesity, unspecified Presentation: 10/02 12:00 Chief complaint: Patient states: right leg pain X 2 weeks, pain behind knee and on iw outside of calf, hx of DVT , on xarelto. Coronavirus screen: At this time, the client does not indicate any symptoms associated with coronavirus-19. Ebola Screen: No symptoms or risks identified at this time. Initial Sepsis Screen: Does the patient meet any 2 criteria? No. Patient's initial sepsis screen is negative. Does the patient have a suspected source of infection? No. Patient's initial sepsis screen is negative. Risk Assessment: Do you want to hurt yourself or someone else? Patient reports no desire to harm self or others. Onset of symptoms was September 19, 2024. 12:00 Method Of Arrival: Wheelchair iw 12:00 Acuity: RUY 3 iw Historical: - Allergies: 12:01 No Known Allergies; iw - PMHx: 12:01 DVT; breast cancer; Diabetes mellitus; iw - PSHx: 12:01 right mastectomy; hysterectomy; iw - Immunization history:: Adult Immunizations up to date. - Infectious Disease History:: Denies. - Social history:: Smoking status: Patient denies any tobacco usage or history of. - Family history:: not pertinent. Screenin:07 [facility] ED Fall Risk Assessment (Adult) History of falling in the last 3 months, mb9 including since admission No falls in past 3 months (0 pts) Confusion or Disorientation No (0 pts) Intoxicated or Sedated No (0 pts) Impaired Gait No (0 pts) Mobility Assist Device Used No (0 pt) Altered Elimination No (0 pt) Score/Fall Risk Level 0 - 2 = Low Risk Oriented to surroundings, Maintained a safe environment, Educated pt \T\ family on fall prevention, incl call for assistance when getting out of bed. Abuse screen: Denies threats or abuse. Nutritional screening: No deficits noted. Tuberculosis screening: No symptoms or risk factors identified. Assessment: 12:14 General: Appears in no apparent distress. Behavior is calm, cooperative. Pain: mb9 Complains of pain in right leg Quality of pain is described as throbbing, Pain began 2 weeks ago Is intermittent. Neuro: Miguel Agitation-Sedation Scale (RASS): 0 - Alert and Calm Level of Consciousness is awake, alert, obeys commands, Oriented to person, place, time, situation, Appropriate for age. Cardiovascular: Patient's skin is warm and dry. Respiratory: Airway is patent Respiratory effort is even, unlabored, Respiratory pattern is regular, symmetrical, Denies shortness of breath. GI: No signs and/or symptoms were reported involving the gastrointestinal system. : No signs and/or symptoms were reported regarding the genitourinary system. EENT: No signs and/or symptoms were reported regarding the EENT system. Derm: Skin is pink, warm \T\ dry. Musculoskeletal: Range of motion: intact in all extremities. 13:30 Reassessment: No changes from previously documented assessment. Patient and/or family mb9 updated on plan of care and expected duration. Pain level reassessed. Patient is alert, oriented x 3, equal unlabored respirations, skin warm/dry/pink. 14:10 Reassessment: Patient appears in no apparent distress at this time. Patient and/or kj2 family updated on plan of care and expected duration. Pain level reassessed. Patient is alert, oriented x 3, equal unlabored respirations, skin warm/dry/pink. Vital Signs: 12:00 BP 117 / 75; Pulse 80; Resp 16; Temp 97.9; Pulse Ox 99% on R/A; Weight 138.8 kg; Height iw 5 ft. 7 in. ; Pain 8/10; 14:40 BP 121 / 18; Pulse 82; Resp 18; Temp 98; Pulse Ox 100% ; kj2 12:00 Body Mass Index 47.93 (138.80 kg, 170.18 cm) iw 12:00 Pain Scale: Adult iw NIH Stroke Scale Scores: 14:01 NIHSS Score: 0 [facility] ED Course: 11:42 Patient arrived in ED. gl 11:43 Rahul Goode MD is Attending Physician. jacques 12:01 Triage completed. iw 12:02 Arm band placed on. iw 12:07 Letha Pack RN is Primary Nurse. mb9 12:07 Bed in low position. Call light in reach. Side rails up X 1. Provided Education on: sonu9 press call light if needing anything. Client placed on continuous cardiac and pulse oximetry monitoring. NIBP monitoring applied. 12:15 No provider procedures requiring assistance completed. mb9 12:49 US Extremity Venous W Compression Momo In Process Unspecified. EDMS 14:44 Patient did not have IV access during this emergency room visit. kj2 Administered Medications: No medications were administered Medication: 12:07 VIS not applicable for this client. mb9 Outcome: 14:04 Discharge ordered by . jacques 14:41 Discharged to home ambulatory, kj2 14:41 Condition: stable 14:41 Discharge instructions given to patient, Instructed on discharge instructions, follow up and referral plans. Demonstrated understanding of instructions, follow-up care, 14:46 Patient left the ED. kj2 NIH Stroke Scale - NIH Stroke Score Date: 10/02/2024 Time: 14:01 Total Score = 0 10. Dysarthria (speech clarity - read or repeat words) - 0(Normal) 11. Extinction and Inattention (visual/tactile/auditory/spatial/personal) - 0(No abnormality) 1a. Level of Consciousness (LOC) - 0(Alert) 1b. Level of Consciousness (LOC) (Month \T\ Age) - 0(Both) 1c. LOC Commands (Open \T\ Closes Eyes/Asbestos Coverer) - 0(Both) 2. Best Gaze (Lateral Gaze Paresis) - 0(Normal) 3. Visual Field Loss - 0(No visual loss) 4. Facial Palsy - 0(Normal) 5a. Left Arm: Motor (10-second hold) - 0(No drift) 5b. Right Arm: Motor (10-second hold) - 0(No drift) 6a. Left Leg: Motor (5-second hold - always test supine) - 0(No drift) 6b. Right Leg: Motor (5-second hold - always test supine) - 0(No drift) 7. Limb Ataxia (finger/nose \T\ heel/lentz - test with eyes open) - 0(Absent) 8. Sensory Loss (pinprick arms/legs/face) - 0(Normal) 9. Best Language: Aphasia (description/naming/reading) - 0(No aphasia) Initials: jacques Signatures: Dispatcher [employer] EDIN Rhaul Goode MD MD cha Williams, Irene RN RN iw Ramone, Letha Mccord, RN RN mb9 Kerry Carlin, RN RN kj2 Rona Wilcox, Reg Reg gl
--- NOTE | 2024-10-02 14:04 | EDPHYS ---
Physician Documentation [facility] Name: Latha Rai Age: 68 yrs Sex: Female : 1955 Arrival Date: 10/02/2024 Time: 11:38 Bed 17 Private MD: ED Physician Rahul Goode HPI: 10/02 13:55 This 68 yrs old Black Female presents to ER via Wheelchair with complaints of Leg Pain. jacques 13:55 The patient presents with decreased range of motion, pain, that is acute. The jacques complaints affect the right leg and left leg. Context: resulted from an unknown cause, the patient can fully bear weight. Modifying factors: The symptoms are alleviated by elevating leg, the symptoms are aggravated by weight bearing, bending knee. Treatment prior to arrival includes: no previous treatment. Severity of symptoms: At their worst the symptoms were mild, in the emergency department the symptoms are unchanged. The patient has not experienced similar symptoms in the past. Historical: - Allergies: 12:01 No Known Allergies; iw - PMHx: 12:01 DVT; breast cancer; Diabetes mellitus; iw - PSHx: 12:01 right mastectomy; hysterectomy; iw - Immunization history:: Adult Immunizations up to date. - Infectious Disease History:: Denies. - Social history:: Smoking status: Patient denies any tobacco usage or history of. - Family history:: not pertinent. ROS: 13:55 Constitutional: Negative for fever, chills, and weight loss, Eyes: Negative for injury, jacques pain, redness, and discharge, ENT: Negative for injury, pain, and discharge, Neck: Negative for injury, pain, and swelling, Cardiovascular: Negative for chest pain, palpitations, and edema, Respiratory: Negative for shortness of breath, cough, wheezing, and pleuritic chest pain, Abdomen/GI: Negative for abdominal pain, nausea, vomiting, diarrhea, and constipation, Back: Negative for injury and pain, : Negative for injury, bleeding, discharge, and swelling, Skin: Negative for injury, rash, and discoloration, Neuro: Negative for headache, weakness, numbness, tingling, and seizure, Psych: Negative for depression, anxiety, suicide ideation, homicidal ideation, and hallucinations, Allergy/Immunology: Negative for hives, rash, and allergies, Endocrine: Negative for neck swelling, polydipsia, polyuria, polyphagia, and marked weight changes, Hematologic/Lymphatic: Negative for swollen nodes, abnormal bleeding, and unusual bruising, 13:55 MS/extremity: Positive for pain, of the right leg and left leg, Exam: 14:01 Constitutional: This is a well developed, well nourished patient who is awake, alert, jacques and in no acute distress. Head/Face: Normocephalic, atraumatic. Eyes: Pupils equal round and reactive to light, extra-ocular motions intact. Lids and lashes normal. Conjunctiva and sclera are non-icteric and not injected. Cornea within normal limits. Periorbital areas with no swelling, redness, or edema. ENT: Nares patent. No nasal discharge, no septal abnormalities noted. Tympanic membranes are normal and external auditory canals are clear. Oropharynx with no redness, swelling, or masses, exudates, or evidence of obstruction, uvula midline. Mucous membranes moist. Neck: Trachea midline, no thyromegaly or masses palpated, and no cervical lymphadenopathy. Supple, full range of motion without nuchal rigidity, or vertebral point tenderness. No Meningismus. Chest/axilla: Normal chest wall appearance and motion. Nontender with no deformity. No lesions are appreciated. Cardiovascular: Regular rate and rhythm with a normal S1 and S2. No gallops, murmurs, or rubs. Normal PMI, no JVD. No pulse deficits. Respiratory: Lungs have equal breath sounds bilaterally, clear to auscultation and percussion. No rales, rhonchi or wheezes noted. No increased work of breathing, no retractions or nasal flaring. Abdomen/GI: Soft, non-tender, with normal bowel sounds. No distension or tympany. No guarding or rebound. No evidence of tenderness throughout. Back: No spinal tenderness. No costovertebral tenderness. Full range of motion. Skin: Warm, dry with normal turgor. Normal color with no rashes, no lesions, and no evidence of cellulitis. MS/ Extremity: Pulses equal, no cyanosis. Neurovascular intact. Full, normal range of motion., bilateral aka Neuro: Awake and alert, GCS 15, oriented to person, place, time, and situation. Cranial nerves II-XII grossly intact. Motor strength 5/5 in all extremities. Sensory grossly intact. Cerebellar exam normal. Normal gait. Psych: Awake, alert, with orientation to person, place and time. Behavior, mood, and affect are within normal limits. 14:01 Musculoskeletal/extremity: ROM: no acute changes, intact in all extremities, full active range of motion, full passive range of motion, Circulation is intact in all extremities. Compartment Syndrome exam of affected extremity: is normal. Weight bearing: able to fully bear weight, without difficulty, DVT Exam: no swelling, no tenderness, negative Homans' sign noted on exam, no appreciated bluish discoloration, no erythema, no increased warmth, pain, Vital Signs: 12:00 BP 117 / 75; Pulse 80; Resp 16; Temp 97.9; Pulse Ox 99% on R/A; Weight 138.8 kg; Height iw 5 ft. 7 in. ; Pain 8/10; 14:40 BP 121 / 18; Pulse 82; Resp 18; Temp 98; Pulse Ox 100% ; kj2 12:00 Body Mass Index 47.93 (138.80 kg, 170.18 cm) iw 12:00 Pain Scale: Adult iw NIH Stroke Scale Scores: 14:01 NIHSS Score: 0 jacques MDM: 11:43 Medical Screening Exam initiated jacques 14:01 Differential diagnosis: contusion, tendonitis. Data reviewed: vital signs, nurses jacques notes, radiologic studies, plain films. I considered the following discharge prescriptions or medication management in the emergency department Medications were administered in the Emergency Department. See MAR. Independent interpretation of the following test(s) in the Emergency Department Radiology Department Ultrasound: My interpretation is bilateral venous doppler. 10/02 11:45 Order name: US Extremity Venous W Compression Momo; Complete Time: 13:26 jacques Administered Medications: No medications were administered Disposition Summary: 10/02/24 14:04 Discharge Ordered Notes: Location: Home jacques Problem: new jacques Symptoms: have improved jacques Condition: Stable jacques Diagnosis - Pain in left leg jacques - Pain in right leg jacques - Other chronic pain jacques - Obesity, unspecified jacques Followup: jacques - With: Private Physician - When: 2 - 3 days - Reason: Recheck today's complaints, Continuance of care, Re-evaluation by your physician Discharge Instructions: - Discharge Summary Sheet jacques - Chronic Back Pain jacques - Chronic Pain, Adult jacques - Musculoskeletal Pain jacques - Obesity, Adult jacques Forms: - Medication Reconciliation Form jacques - Antibiotic Education jacques - Prescription Opioid Use jacques - Patient Portal Instructions jacques - Leadership Thank You Letter jacques NIH Stroke Scale - NIH Stroke Score Date: 10/02/2024 Time: 14:01 Total Score = 0 10. Dysarthria (speech clarity - read or repeat words) - 0(Normal) 11. Extinction and Inattention (visual/tactile/auditory/spatial/personal) - 0(No abnormality) 1a. Level of Consciousness (LOC) - 0(Alert) 1b. Level of Consciousness (LOC) (Month \T\ Age) - 0(Both) 1c. LOC Commands (Open \T\ Closes Eyes/Storage Engineer) - 0(Both) 2. Best Gaze (Lateral Gaze Paresis) - 0(Normal) 3. Visual Field Loss - 0(No visual loss) 4. Facial Palsy - 0(Normal) 5a. Left Arm: Motor (10-second hold) - 0(No drift) 5b. Right Arm: Motor (10-second hold) - 0(No drift) 6a. Left Leg: Motor (5-second hold - always test supine) - 0(No drift) 6b. Right Leg: Motor (5-second hold - always test supine) - 0(No drift) 7. Limb Ataxia (finger/nose \T\ heel/lentz - test with eyes open) - 0(Absent) 8. Sensory Loss (pinprick arms/legs/face) - 0(Normal) 9. Best Language: Aphasia (description/naming/reading) - 0(No aphasia) Initials: [facility] Signatures: Dispatcher [employer] Rahul Ngo MD MD cha Williams, Irene, RN RN iw
[2024-10-02 14:58] VITALS: BP 121/18; TEMP 98; O2SAT 100
== END 2024-10-02 14:46 | disposition home or self-care (01) ==
LOC: ER 11:38
DX: M79.605 Pain in left leg (principal); M79.604 Pain in right leg; G89.29 Other chronic pain; E66.9 Obesity, unspecified; Z86.718 Personal history of other venous thrombosis and embolism
CPT/HCPCS: 93970; 99283